=== PATIENT | female | born 1955 | race Caucasian/White ===

== ENCOUNTER 2020-03-22 14:45 | Outpatient (CLI) | payer BC, SELFPAY ==
--- NOTE | ~2020-03-22 | MM_ITS ---
EXAMINATION: MM screening mirela BI w kayden HISTORY: Screening mammogram TECHNIQUE: Craniocaudal and mediolateral oblique 3-D tomosynthesis images were obtained and synthetic 2-D images were generated. Bilateral rotated lateral cc views. CAD analysis was submitted and interp reted. COMPARISON: 11/03/2016, 10/14/2015 bilateral digital screening mammogram examinations BREAST PARENCHYMAL COMPOSITION: There are scattered areas of fibroglandular density. FINDINGS: There is no evidence of suspicious mass, calcification, or architectural distortion to sugg est malignancy in either breast. There has been no suspicious interval change. IMPRESSION: 1. No mammographic evidence of malignancy. 2. Recommend routine screening mammography in one year. BI-RADS Category 1: Negative Reviewed, dictated and finalized at location A.
--- NOTE | ~2020-03-22 | DEXA_ITS ---
Bone Density Report Name: Elyse Damon Age: 64 Sex: Female Ethnicity: Date of : 1955 Indication: postmenopausal; height loss; hysterectomy; Referring Provider: BELIA LEONG Study: Bone densitometry was performed. Exam Date: March 22, 2020 Accession number: [id number] Bone Density: Region BMD T-score Z-score Classification AP Spine (L1-L4) 0.970 -0.7 0.9 Normal Femoral Neck (Left) 0.714 -1.2 0.0 Osteopenia Total Hip (Left) 0.963 0.2 1.0 Normal Total Hip Bilateral Avg 0.933 -0.1 0.8 Normal Femoral Neck (Right) 0.647 -1.8 -0.6 Osteopenia Total Hip (Right) 0.902 -0.3 0.6 Normal World Health Organization criteria for BMD impression classify patients as: Normal (T-score at or above -1.0), Osteopenia (T-score between -1.0 and -2.5), or Osteoporosis (T-score at or below -2.5). 10-year Fracture Risk(1): Major Osteoporotic Fracture 8.2% Hip Fracture 0.9% Reported Risk Factors: [place] (), Neck BMD=0.647, BMI=44.5 (1) FRAX(R) Version 3.08. Fracture probability calculated for an untreated patient. Fracture probability may be lower if the patient has received treatment. Clinical Information Provided by Patient: Has the following medical conditions: Hysterectomy Patient maximum height was 65 Menopause Age: 54 No regular weight bearing exercise Drinks caffeinated beverages Onset of menses at age 13 Number of children 2 Impression: The patient has low bone mass, based on the Right Femoral Neck T-score. The patient has an estimated ten-year risk of hip fracture of 0.9% and an estimated ten-year risk of major fracture of 8.2%, based on the WHO FRAX algorithm. Discussion: BONE DENSITY IS LOW AT ONE OR MORE SKELETAL SITES. This patient's lowest T-score is low at one or more skeletal sites. It meets the World Health Organization's (WHO) criteria for ?low bone mass? (T-score between -1.0 and -2.5). The patient's 10-year risk of fracture as calculated by FRAX is less than the threshold where pharmacological therapy is recommended by the National Osteoporosis Foundation (NOF). However, all treatment decisions require clinical judgment and consideration of individual patient factors, including patient preferences, comorbidities, previous drug use, risk factors not captured in the FRAX model (e.g., frailty, falls, vitamin D deficiency, increased bone turnover, interval significant decline in bone density) and possible under or overestimation of fracture risk by FRAX. The patient should follow a healthful lifestyle (good nutrition with adequate calcium and vitamin D, and appropriate weight-bearing exercise). Follow-Up: Consider repeating this study in 2 to 3 years to reassess this patient's status, or sooner if there is some new clinical indication. Reported by: MANUEL on 03/22/2020 3:29:00 PM.
== END 2020-03-22 14:46 | disposition home or self-care (01) ==
LOC: ANHIMG 14:48
PROVIDERS: PCP Family Medicine; Visit Provider Family Medicine
DX: Z78.0 Asymptomatic menopausal state (principal); Z12.31 Encounter for screening mammogram for malignant neoplasm of breast; M85.852 Other specified disorders of bone density and structure, left thigh; M85.851 Other specified disorders of bone density and structure, right thigh
CPT/HCPCS: 77063; 77067; 77080

== ENCOUNTER → 2021-06-09 16:32 | Outpatient (CLI) | payer BC, SELFPAY ==
--- NOTE | ~2021-06-09 | MM_ITS ---
EXAMINATION: MM screening mirela BI w kayden HISTORY: Screening TECHNIQUE: Craniocaudal and mediolateral oblique 3-D tomosynthesis images were obtained and synthetic 2-D images were generated. CAD analysis was submitted and interpreted. COMPARISON: Comparison to multiple prior studies sequentially, with oldest reviewed study dated 10/05. BREAST PARENCHYMAL COMPOSITION: Breast composed of scattered areas of fibroglandular density FINDINGS: There is no evidence of suspicious mass, calcification, or architectural distortion to sugg est malignancy in either breast. There has been no suspicious interval change. IMPRESSION: 1. No mammographic evidence of malignancy. 2. Recommend routine screening mammography in one year. BI-RADS Category 1: Negative Reviewed, dictated and finalized at location A.
--- NOTE | ~2021-06-09 | XR_ITS ---
EXAMINATION: XR cervical spine min 6V DATE: 06/09/2021 17:01 INDICATION: Neck pain. TECHNIQUE: 8 views of cervical spine including flexion and extension views were obtained. COMPARISON: None. FINDINGS: There is 6 degrees levocurvature of cervicothoracic spine. The spine is hypomobile with fle xion and extension. Vertebral body heights are normal. There is mildly decreased disc height at C5 C4 -C5 and moderately decreased disc height at C5-C6 and C6-C7. There is multilevel facet joint osteoart hritis, severe on the right at C3-C4. There is multilevel uncovertebral joint osteoarthritis, moderat e to severe bilaterally from C3-C4 through C6-C7. On the right, there is mild neural foraminal stenos is at C3-C4 and moderate neural foraminal stenosis from C4-C5 through C6-C7. On the left, there is mi ld neural foraminal stenosis at C4-C5 and moderate neural foraminal stenosis at C5-C6 and C6-C7. Ther e is mild central canal stenosis at C4-C5, C5-C6, and C6-C7. No prevertebral soft tissue swelling. IMPRESSION: 1. Moderate cervical spondylosis. Reviewed, dictated and finalized at location A.
== END ==
PROVIDERS: PCP Family Medicine; Visit Provider Family Medicine
DX: Z12.31 Encounter for screening mammogram for malignant neoplasm of breast (principal); M47.812 Spondylosis without myelopathy or radiculopathy, cervical region; M48.02 Spinal stenosis, cervical region
CPT/HCPCS: 72052; 77063; 77067

== ENCOUNTER 2021-11-17 08:53 | Outpatient (CLI) | payer BC, SELFPAY ==
--- NOTE | ~2021-11-17 | US_ITS ---
EXAMINATION: US thyroid EXAM DATE: 11/17/2021 10:01 INDICATION: E04.1 - Nontoxic single thyroid nodule . TECHNIQUE: Multiple grayscale and Doppler images of the thyroid were obtained (by a technologist who performed the scan) and subsequently reviewed. Individual nodules and recommendations may be reporte d in accordance with TI-RADS system as designated by the 2017 ACR White Paper TI-RADS committee. Comp katya is made to prior examination from 03/21/2019. FINDINGS: The right thyroid lobe measures 4.5 x 1.2 x 1.6 cm, with several small thyroid nodules. The left thyr oid lobe measures 4.1 x 1.5 x 1.8 cm with the dominant thyroid nodule measuring 1.8 x 1.2 x 1.6 cm, s olid (2 points), hypoechoic (2 points), wider than tall, smooth well defined margin, without echogeni c foci, category TR4 for this nodule. On prior study dimensions provided at 1.8 x 1.2 x 1.7 cm, is u nchanged in size. IMPRESSION: Stable multinodular goiter. Return to clinical follow-up and if additional palpable abnor mality develops a repeat ultrasound. Reviewed, dictated and finalized at location A. 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 Return to clinical follow-up and if add itional palpable abnormality develops a repeat ultrasound.
== END 2021-11-17 08:54 | disposition home or self-care (01) ==
PROVIDERS: PCP Family Medicine; Visit Provider Internal Medicine Endocrinology, Diabetes & Metabolism
DX: E04.9 Nontoxic goiter, unspecified (principal)
CPT/HCPCS: 76536

== ENCOUNTER → 2022-07-21 11:30 | Outpatient (CLI) | payer BC, SELFPAY ==
--- NOTE | ~2022-07-21 | DEXA_ITS ---
Bone Density Report Name: BUTCH CLINE Age: 67 Sex: Female Ethnicity: Date of : 1955 Indication: postmenopausal; screening for osteoporosis; hysterectomy; Referring Provider: Kristie Zhou Study: Bone densitometry was performed. Exam Date: July 21, 2022 Accession number: [id number] Bone Density: Region BMD T-score Z-score Classification AP Spine (L1-L4) 0.946 -0.9 0.9 Normal Femoral Neck (Left) 0.674 -1.6 -0.3 Osteopenia Total Hip (Left) 0.855 -0.7 0.3 Normal Femoral Neck (Right) 0.601 -2.2 -0.9 Osteopenia Total Hip (Right) 0.812 -1.1 0.0 Osteopenia Total Hip Mean 0.834 -0.9 0.2 Normal World Health Organization criteria for BMD impression classify patients as: Normal (T-score at or above -1.0), Osteopenia (T-score between -1.0 and -2.5), or Osteoporosis (T-score at or below -2.5). Previous Exams: Region Exam Age BMD T-score BMD Change BMD Change Date g/cm2 vs Baseline vs Previous AP Spine(L1-L4) 07/21/2022 67 0.946 -0.9 -0.226 -0.119 10/25/2011 56 1.065 0.2 -0.106* -0.106* 05/10/2008 53 1.171 1.1 Total Hip(Left) 07/21/2022 67 0.855 -0.7 -0.206 -0.129 10/25/2011 56 0.984 0.3 -0.077* -0.077* 05/10/2008 53 1.061 1.0 Total Hip(Right) 07/21/2022 67 0.812 -1.1 -0.225 -0.199 10/25/2011 56 1.011 0.6 -0.026 -0.026 05/10/2008 53 1.038 0.8 *Denotes significance at 95% confidence level, LSC for AP Spine = 0.022 g/cm2, LSC for Total Hip = 0.027 g/cm2 Clinical Information Provided by Patient: Has used the following medications: Vitamin D, NEIL Has the following medical conditions: Hysterectomy Patient maximum height was 65.0 Menopause Age: 55 No regular weight bearing exercise Drinks caffeinated beverages Onset of menses at age 13 Number of children 2 Impression: The patient has low bone mass, based on the Right Femoral Neck T-score. No significant bone loss was observed. Discussion: BONE DENSITY IS LOW AT ONE OR MORE SKELETAL SITES. This patient's lowest T-score is low at one or more skeletal sites. It meets the World Health Organization's (WHO) criteria for ?low bone mass? (T-score between -1.0 and -2.5). The patient's 10-year risk of fracture as calculated by FRAX is less than the threshold where pharmacological therapy is recommended by the National Osteoporosis Foundation (NOF). However, all treatment decisions require clinical judgment and consideration of individual patient factors, including patient preferences, comor
== END ==
PROVIDERS: PCP Family Medicine; Visit Provider Internal Medicine Endocrinology, Diabetes & Metabolism
DX: M85.88 Other specified disorders of bone density and structure, other site (principal); M85.852 Other specified disorders of bone density and structure, left thigh; M85.851 Other specified disorders of bone density and structure, right thigh
CPT/HCPCS: 77080

== ENCOUNTER → 2022-08-11 10:40 | Outpatient (CLI) | payer BC, SELFPAY ==
--- NOTE | ~2022-08-11 | MM_ITS ---
EXAMINATION: MM screening mirela BI w kayden HISTORY: Screening TECHNIQUE: Craniocaudal and mediolateral oblique 3-D tomosynthesis images were obtained and synthetic 2-D images were generated. CAD analysis was submitted and interpreted. COMPARISON: Comparison to multiple prior studies sequentially, with oldest reviewed study dated 07/17. BREAST PARENCHYMAL COMPOSITION: There are scattered areas of fibroglandular density. FINDINGS: There is a new mass in the upper inner quadrant of the left breast posteriorly. The right b reast is stable without evidence for malignancy. IMPRESSION: 1. New left breast mass, upper inner quadrant. 2. Additional mammographic views and possible breast ultrasound are recommended. BI-RADS Category 0: Incomplete: Needs additional imaging evaluation. Reviewed, dictated and finalized at location A. IMPRESSION: 1. New left breast mass, upper inner quadrant. 2. Additional mammographic views and possible breast ultrasound are recommended . BI-RADS Category 0: Incomplete: Needs additional imaging evaluation.
== END ==
PROVIDERS: PCP Family Medicine; Visit Provider Family Medicine
DX: Z12.31 Encounter for screening mammogram for malignant neoplasm of breast (principal); R92.8 Other abnormal and inconclusive findings on diagnostic imaging of breast
CPT/HCPCS: 77063; 77067

== ENCOUNTER → 2022-08-17 09:20 | Outpatient (CLI) | payer BC, SELFPAY ==
--- NOTE | ~2022-08-17 | MMUS_ITS ---
EXAMINATION: MM diagnostic mirela LT w kayden, US breast LT limited HISTORY: Follow-up left breast mass TECHNIQUE: Additional 3-D tomosynthesis images of the left breast were performed and synthetic 2-D im ages were generated. CAD analysis was submitted and interpreted. High resolution Limited left breast ultrasound was performed. COMPARISON: Comparison to multiple prior studies sequentially, with oldest reviewed study dated 07/17. BREAST PARENCHYMAL COMPOSITION: Breast composed of scattered areas of fibroglandular density FINDINGS: MAMMOGRAPHIC FINDINGS: There are 2 small masses in the upper aspect of the left breast measuring 4 mm or less. The more post erior mass measures 4 mm and is located in the upper inner quadrant of the left breast. The anterior mass is not well visualized on CC view. ULTRASOUND: Limited left breast ultrasound: At 12:00, 2 cm from the nipple, there is a 3 mm cystic nodule with in ternal echogenic foci, possibly complicated cyst. No other discrete masses are identified. IMPRESSION: 1. Multiple benign findings of the left breast. 2. Recommend 6 month follow-up diagnostic left mammogram and ultrasound BI-RADS category 3, probably benign findings. Reviewed, dictated and finalized at location A. IMPRESSION: 1. Multiple benign findings of the left breast. 2. Recommend 6 month follow-up diagnostic left mammogram and ultrasound BI-RADS category 3, probably benign findings.
== END ==
PROVIDERS: PCP Family Medicine; Visit Provider Physician Assistant
DX: R92.8 Other abnormal and inconclusive findings on diagnostic imaging of breast (principal); N63.23 Unspecified lump in the left breast, lower outer quadrant; N63.22 Unspecified lump in the left breast, upper inner quadrant
CPT/HCPCS: 76642; 77061; 77065; G0279

== ENCOUNTER → 2023-03-08 08:08 | Outpatient (CLI) | payer BC, SELFPAY ==
--- NOTE | ~2023-03-08 | MMUS_ITS ---
EXAMINATION: MM diagnostic mirela LT w kayden, US breast LT limited HISTORY: Six-month follow-up for probably benign left breast masses TECHNIQUE: Craniocaudal, mediolateral, and mediolateral oblique 3-D tomosynthesis images of the left breast were performed and synthetic 2-D images were generated. CAD analysis was submitted and interpr eted. High resolution limited left breast ultrasound was performed. COMPARISON: 08/17/2022, 08/11/2022, 06/09/2021 BREAST PARENCHYMAL COMPOSITION: There are scattered areas of fibroglandular density. FINDINGS: MAMMOGRAPHIC FINDINGS: The previously described mammographic mass of the inner breast is no longer evident. No suspicious ma ss, calcification, or architectural distortion are identified. There has been no suspicious interval change. ULTRASOUND: There is a stable 2 mm round, circumscribed, hypoechoic mass at the 12:00 location 2 cm from the nipp le with no posterior features or internal vascularity. IMPRESSION: 1. Stable, probably benign sonographically detected left breast mass. 2. Recommend 6 month follow-up bilateral diagnostic mammogram and left breast ultrasound. BI-RADS category 3, probably benign findings. Reviewed, dictated and finalized at location A. IMPRESSION: 1. Stable, probably benign sonographically detected left breast mass. 2. Recommend 6 month follow-up bilateral diagnostic mammogram and left breast u ltrasound. BI-RADS category 3, probably benign findings.
== END ==
PROVIDERS: PCP Family Medicine; Visit Provider Physician Assistant
DX: R92.8 Other abnormal and inconclusive findings on diagnostic imaging of breast (principal)
CPT/HCPCS: 76642; 77061; 77065; G0279

== ENCOUNTER → 2023-10-11 07:44 | Outpatient (CLI) | payer BC, SELFPAY ==
--- NOTE | ~2023-10-11 | MMUS_ITS ---
EXAMINATION: MM diagnostic mirela BI w kayden, US breast LT limited HISTORY: Six-month follow-up for probably benign sonographically detected left breast mass TECHNIQUE: Craniocaudal, mediolateral, and mediolateral oblique 3-D tomosynthesis images of the paul ts were performed and synthetic 2-D images were generated. CAD analysis was submitted and interpreted . High resolution limited left breast ultrasound was performed. COMPARISON: 03/08/2023, 08/17/2022, 08/11/2022, 06/09/2021 BREAST PARENCHYMAL COMPOSITION: There are scattered areas of fibroglandular density. FINDINGS: MAMMOGRAPHIC FINDINGS: No suspicious mass, calcification, or architectural distortion are identified in either breast to sug gest malignancy. There has been no suspicious interval change. Scattered benign-appearing calcificati ons are present. ULTRASOUND: There is a stable 2 mm round, circumscribed, hypoechoic mass at the 12:00 location, 2 cm from the nip ple with no posterior features or internal vascularity. IMPRESSION: 1. Stable, probably benign sonographically detected left breast mass. 2. Given one year of interval stability, recommend 12 month followup bilateral diagnostic mammogram a nd left breast ultrasound. BI-RADS category 3, probably benign findings. Reviewed, dictated and finalized at location A. 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 Stable, probably benign sonographically detected left breast mass. 2. Given one year of interval stability, recommend 12 month followup bilateral diagnostic mammogram and left breast ultrasound. BI-RADS category 3, probably benign findings.
== END ==
PROVIDERS: PCP Family Medicine; Visit Provider Physician Assistant Medical
DX: R92.8 Other abnormal and inconclusive findings on diagnostic imaging of breast (principal)
CPT/HCPCS: 76642; 77062; 77066; G0279

== ENCOUNTER 2024-06-08 07:57 | Outpatient (CLI) | payer OTHER, SELFPAY ==
--- NOTE | ~2024-06-08 | US_ITS ---
COMPLETE ABDOMINAL ULTRASOUND Ordering provider: Justine Prescott MD History: . R74.8 - Abnormal levels of other serum enzymes . Comparison: None. FINDINGS: LIVER: Irregular outline with coarse echogenicity which is suggestive of cirrhosis. No focal hepatic lesions or perihepatic fluid collections are identified. GALLBLADDER: Surgically removed. BILIARY DUCTS: No evidence for intra or extrahepatic biliary dilation. Common bile duct measures 5 mm in diameter which is within normal limits. PANCREAS: Normal echotexture and size. KIDNEYS: Right measures 8.7 cm in length . There is no evidence for hydronephrosis, solid renal mass, renal calculi or perinephric fluid collections. No renal cysts. UPPER ABDOMINAL AORTA: Normal in caliber. IVC: Patent. FREE FLUID: None. IMPRESSION: Liver cirrhosis. Clinical correlation advised. Status post cholecystectomy. Otherwise, normal limite d ultrasound of the abdomen. Reviewed, dictated and finalized at location A. IMPRESSION: Liver cirrhosis. Clinical correlation advised. Status post cholecystectomy. Ot herwise, normal limited ultrasound of the abdomen.
== END 2024-06-08 07:58 ==
LOC: MICIMG 07:58
PROVIDERS: PCP Family Medicine; Visit Provider Family Medicine
DX: R74.8 Abnormal levels of other serum enzymes (principal); K74.60 Unspecified cirrhosis of liver; Z90.49 Acquired absence of other specified parts of digestive tract
CPT/HCPCS: 76705

== ENCOUNTER 2024-06-25 08:23 | Outpatient (CLI) | payer OTHER, SELFPAY ==
--- NOTE | ~2024-06-25 | CT_ITS ---
EXAMINATION: CT abdomen pelvis wo con DATE: 06/25/2024 08:39 INDICATION: Unspecified cirrhosis of liver. TECHNIQUE: Computed tomography (CT) of the abdomen and pelvis was performed without intravenous contr ast. Automated exposure control and iterative reconstruction technique were employed. The dose-length product was 912.75 mGy-cm. COMPARISON: CT abdomen and pelvis 09/06/2012 FINDINGS: The visualized portions of the lung bases demonstrate mild atelectasis. No pleural effusion . The heart size is normal. No pericardial effusion. There is a small sliding hiatal hernia. Paraesop hageal varices are noted. The liver demonstrates a nodular surface contour, consistent with cirrhosis . There are changes of cholecystectomy. There is moderate splenomegaly. The pancreas and adrenal glan ds are normal. There is an 8 mm cyst in right kidney. There are 2 mm and 3 mm stones in left kidney. There is diverticulosis of the colon without evidence of diverticulitis. The appendix is normal. Ther e is mild gastrohepatic and periportal lymphadenopathy, likely reactive. There is trace ascites. Ther e is severe lumbar spondylosis and moderate thoracic spondylosis. IMPRESSION: 1. Cirrhosis of the liver with portal venous hypertension. 2. Mild abdominal lymphadenopathy, likely reactive. 3. Small sliding hiatal hernia. Reviewed, dictated and finalized at location A.
== END 2024-06-25 08:24 ==
LOC: MICIMG 08:24
PROVIDERS: PCP Internal Medicine Gastroenterology; Visit Provider Family Medicine
DX: R74.8 Abnormal levels of other serum enzymes (principal); K74.60 Unspecified cirrhosis of liver; K76.6 Portal hypertension; R59.0 Localized enlarged lymph nodes; K44.9 Diaphragmatic hernia without obstruction or gangrene
CPT/HCPCS: 74176

== ENCOUNTER 2024-07-31 14:24 | Outpatient (CLI) | payer OTHER, SELFPAY ==
--- NOTE | ~2024-07-31 | MM_ITS ---
EXAMINATION: MM diagnostic mirela BI w kayden HISTORY: Follow-up left breast mass TECHNIQUE: Additional 3-D tomosynthesis images of the left breast were performed and synthetic 2-D im ages were generated. CAD analysis was submitted and interpreted. COMPARISON: Comparison to multiple prior studies sequentially, with oldest reviewed study dated 03/22. BREAST PARENCHYMAL COMPOSITION: Not dense: There are scattered areas of fibroglandular density. FINDINGS: The right breast is stable without evidence for malignancy. Stable subareolar asymmetries c ompared with prior examinations. No new masses, calcifications or architectural distortion. IMPRESSION: 1. Stable bilateral mammogram. Recommend follow-up correlation with targeted left breast ultrasound i s recommended on prior examination. 2. Limited left breast ultrasound recommended. BI-RADS Category 0: Incomplete: Needs additional imaging evaluation. Reviewed, dictated and finalized at location B. IMPRESSION: 1. Stable bilateral mammogram. Recommend follow-up correlation with targeted le ft breast ultrasound is recommended on prior examination. 2. Limited left breast ultrasound recommended. BI-RADS Category 0: Incomplete: Needs additional imaging evaluation.
== END 2024-07-31 14:25 | disposition home or self-care (01) ==
PROVIDERS: PCP Family Medicine; Visit Provider Internal Medicine Endocrinology, Diabetes & Metabolism
DX: Z12.31 Encounter for screening mammogram for malignant neoplasm of breast (principal); R92.8 Other abnormal and inconclusive findings on diagnostic imaging of breast
CPT/HCPCS: 77062; 77066; G0279

== ENCOUNTER 2024-08-07 10:17 | Outpatient (CLI) | payer OTHER, SELFPAY ==
--- NOTE | ~2024-08-07 | US_ITS ---
US breast LT limited 08/07/2024 10:28 Indication: Follow-up left breast mass Procedure: High-resolution Limited ultrasound of the left breast Comparison: Ultrasound dated 10/11/2023 and mammogram dated 07/31/2024 Findings: There is a small 3 mm anechoic mass with no significant posterior features or internal vasc ularity, unchanged, consistent with a cyst. No suspicious masses to suggest malignancy. Impression: 1: Benign 3 mm left breast cysts at 12:00, 2 cm from the nipple. No sonographic evidence for malignan cy. Routine yearly screening mammogram and regular clinical breast examination are recommended. BI-RADS CATEGORY 2 - BENIGN FINDINGS Reviewed, dictated and finalized at location B. Impression: 1: Benign 3 mm left breast cysts at 12:00, 2 cm from the nipple. No sonographic evidence for malignancy. Routine yearly screening mammogram and regular clinical breast examination are recommended. BI-RADS CATEGORY 2 - BENIGN FINDINGS
== END 2024-08-07 10:18 | disposition home or self-care (01) ==
LOC: MICIMG 10:17
PROVIDERS: PCP Family Medicine; Visit Provider Family Medicine
DX: N60.02 Solitary cyst of left breast (principal); R92.8 Other abnormal and inconclusive findings on diagnostic imaging of breast
CPT/HCPCS: 76642

== ENCOUNTER 2024-08-13 08:12 | Day surgery (SDC) | payer OTHER, SELFPAY ==
[2024-07-14 09:35] VITALS: BMI 36.8
[2024-07-29 13:26] VITALS: BMI 35.6
--- NOTE | 2024-08-13 07:05 | WPDANESEPPF ---
Anes - Initial Pre Proc Eval Procedure: Operation Date: 08/13/24 10:30 Proposed Procedures p Esophagogastroduodenoscopy - Alex Brown MD s Screening Colonoscopy - Alex Brown MD Date/Time: 08/13/24 07:05 Surgeon: Alex Brown MD Pre Op Diagnosis: cirrhosis, neoplasia screening Patient Data Age: 69 Gender: F Height: 1.59 m Weight: 90 kg Allergies Allergy/AdvReac Type Severity Reaction Status Date / Time No Known Allergies Allergy Verified 08/13/24 09:42 Home Medications Medication Instructions Recorded Confirmed Type multivitamin (Multiple Vitamins 1 tablet PO DAILY 10/06/19 08/13/24 History tablet) calcium carbonate (Calci-Mix) 500 mg PO DAILY 04/11/20 07/29/24 History cholecalciferol (vitamin D3) 25 1,000 unit PO DAILY 04/11/20 07/29/24 History mcg (1,000 unit) capsule albuterol sulfate 2.5 mg/3 mL 2.5 mg (3 mL) inhalation Q4-6H PRN 05/25/22 08/13/24 Rx (0.083 %) solution for nebulization shortness of breath or wheezing #180 mL albuterol sulfate 90 mcg/actuation 2 puff inhalation Q4H PRN 05/25/22 07/29/24 Rx aerosol inhaler (ProAir HFA) shortness of breath or wheezing #1 device montelukast 10 mg tablet 10 mg PO DAILY #90 tabs 01/29/24 08/13/24 Rx simvastatin 10 mg tablet See Rx Instructions .Route 01/29/24 08/13/24 Rx .COMPLEX #90 tabs semaglutide 2 mg/dose (8 mg/3 mL) 2 mg (0.75 mL) subcut WEEKLY 90 03/23/24 07/29/24 Rx subcutaneous pen injector days #9 mL lisinopril 5 mg tablet 5 mg PO DAILY #90 tabs 05/22/24 08/13/24 Rx citalopram 20 mg tablet See Rx Instructions .Route 07/22/24 08/13/24 Rx .COMPLEX #90 tabs meloxicam 15 mg tablet 15 mg PO DAILY #90 tabs 07/22/24 08/13/24 Rx pantoprazole 40 mg tablet,delayed See Rx Instructions .Route 07/22/24 08/13/24 Rx release .COMPLEX #90 tabs Patient hx anesthesia problems: none Family hx anesthesia problems: none Results Review: All pre-operative results and documents have been reviewed as part of the pre-operative evaluation. [facility] Past Medical History Medical History (Updated 08/13/24 @ 07:06 by Ramón Kearns DO) Abnormal CT scan Arthralgia BMI greater than 40 De Quervain's disease (radial styloid tenosynovitis) Encounter for screening colonoscopy Essential hypertension FH: cholecystectomy Hepatic cirrhosis Major depressive disorder, single episode, unspecified Metabolic syndrome Mixed hyperlipidemia Myalgia Nontoxic multinodular goiter Obstructive sleep apnea Onychomycosis Osteopenia Pure hypercholesterolemia, unspecified Rotator cuff tendonitis Seborrheic dermatitis of scalp Splenomegaly Tenosynovitis of thumb Thyroid nodule Transaminitis Type 2 diabetes mellitus without complications Vitamin D deficiency Surgical History Surgical History H/O: hysterectomy History of cholecystectomy Hx of bone graft Family History Family History Mother Family history of migraine headaches Family history of cataracts Hypertension Family history of Alzheimer's disease Family history of diabetes mellitus in first degree relative Family history of malignant neoplasm of breast in first degree relative Family history of hearing loss Father Family history of cataracts Hypertension Family history of arthritis Family history of diabetes mellitus in first degree relative Family history of primary malignant neoplasm of liver Sibling Family history of congestive heart failure Other Diabetes mellitus Family history of coronary artery disease Family history of tremor Social History Social History Smoking status: Never smoker Second hand tobacco smoke exposure: No Alcohol intake: never Alcohol use details: rare Substance use: never Substance use type: does not use Lack of Transportation: No Lack of Food: Never Tr
[2024-08-13 09:48] VITALS: BP 145/79; PULSE 70; RESP 18; TEMP 37.1; O2SAT 97; BMI 34.0
[2024-08-13] MEDS: LACTATED RINGERS 1,000 ML 150 ML IV CONT (09:52)
[2024-08-13 10:01] LABS: Glucose Point of Care 76 mg/dl (65-105)
--- NOTE | 2024-08-13 10:09 | PM.HPGS ---
History of Present Illness History of Present Illness Consent: Risks, benefits, and alternatives have been discussed and questions answered. Patient agrees to proceed with procedure. Chief complaint: cirrhosis, neoplasia screening Narrative: Elyse Damon is a 69 year old female presents for both colonoscopy and EGD. 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 There is concern that this may be related to fatty liver. Patient has no alcohol exposure. Weight appetite and bowel movements are normal. Patient referred for EGD to assess for possible varices and for screening colonoscopy. Family history is noncontributory. Review of Systems Review of Systems: All systems reviewed & are unremarkable except as noted in HPI and below PMFSH Past Medical History Medical History (Updated 08/13/24 @ 07:06 by Ramón Kearns, ) Abnormal CT scan Arthralgia BMI greater than 40 De Quervain's disease (radial styloid tenosynovitis) Encounter for screening colonoscopy Essential hypertension FH: cholecystectomy Hepatic cirrhosis Major depressive disorder, single episode, unspecified Metabolic syndrome Mixed hyperlipidemia Myalgia Nontoxic multinodular goiter Obstructive sleep apnea Onychomycosis Osteopenia Pure hypercholesterolemia, unspecified Rotator cuff tendonitis Seborrheic dermatitis of scalp Splenomegaly Tenosynovitis of thumb Thyroid nodule Transaminitis Type 2 diabetes mellitus without complications Vitamin D deficiency Surgical History Surgical History H/O: hysterectomy History of cholecystectomy Hx of bone graft Family History Family History Mother Family history of migraine headaches Family history of cataracts Hypertension Family history of Alzheimer's disease Family history of diabetes mellitus in first degree relative Family history of malignant neoplasm of breast in first degree relative Family history of hearing loss Father Family history of cataracts Hypertension Family history of arthritis Family history of diabetes mellitus in first degree relative Family history of primary malignant neoplasm of liver Sibling Family history of congestive heart failure Other Diabetes mellitus Family history of coronary artery disease Family history of tremor Social History Social History Smoking status: Never smoker Second hand tobacco smoke exposure: No Alcohol intake: never Alcohol use details: rare Substance use: never Substance use type: does not use Lack of Transportation: No Lack of Food: Never True Current Housing: I Have Housing Concerned About Future Housing: No Difficulty Paying Gas/Electric Bills: No Difficulty Paying for Meds: No Currently Unemployed: No Education: High School Diploma/GED Difficulty w/ Childcare or Family Care: No Living arrangements: alone Occupation/Education: occupation Gender identity (if verbalized by the patient): Female Sexual Orientation (if Verbalized by the Patient): Straight or Heterosexual Spiritual care concerns: No Agree to blood products: Yes Meds Home Medications and Allergies Home Medications Medication Instructions Recorded Confirmed Type multivitamin (Multiple Vitamins 1 tablet PO DAILY 10/06/19 08/13/24 History tablet) calcium carbonate (Calci-Mix) 500 mg PO DAILY 04/11/20 07/29/24 History cholecalciferol (vitamin D3) 25 1,000 unit PO DAILY 04/11/20 07/29/24 History mcg (1,000 unit) capsule albuterol sulfate 2.5 mg/3 mL 2.5 mg (3 mL) inhalation Q4-6H PRN 05/25/22 08/13/24 Rx (0.083 %) solution for nebulization shortness of breath or wheezing #180 mL albuterol sulfate 90 mcg/actuation 2 puff inhalation Q4H PRN 05/25/22 07/29/24 Rx aerosol inhaler (ProAir HFA) shortness of breath or wheezing #1 de
[2024-08-13 11:21] VITALS: BP 120/57; PULSE 77; RESP 16; O2SAT 97
[2024-08-13 11:31] VITALS: BP 128/79; PULSE 81; RESP 18; O2SAT 99
[2024-08-13 11:41] VITALS: BP 130/65; PULSE 74; RESP 20; O2SAT 98
--- NOTE | 2024-08-13 12:09 | WPDANESPN ---
Anes - Prog Note Post-Op Date/Time: 08/13/24 12:09 Cardiovascular status: normal Respiratory status: normal Airway patency: baseline Mental status: baseline Post-Op hydration status: normal Vital Signs: Last Vital Signs Temp 37.1 C 08/13/24 09:48 Pulse 74 08/13/24 11:41 Resp 20 08/13/24 11:41 BP 130/65 08/13/24 11:41 Pulse Ox 98 08/13/24 11:41 O2 Del Method Room Air 08/13/24 11:41 Pain Score (VAS): 0 I/O: Intake & Output 08/12/24 08/13/24 08/13/24 23:59 07:59 15:59 Intake Total 800 Balance 800 08/13/24 09:58 POC Capillary Glucose 76 Post-procedural complaints: none Patient Feedback: Patient satisfied with anesthetic care. Other Findings: Patient vital signs back to baseline. Patient denies nausea and vomiting. Patient's pain under control. Patient OK for discharge.
== END 2024-08-13 12:03 | disposition home or self-care (01) ==
PROVIDERS: PCP Family Medicine; Visit Provider Internal Medicine Gastroenterology
PROC: 0DJ08ZZ Inspection of Upper Intestinal Tract, Via Natural or Artificial Opening Endoscopic (ICD-10-PCS; CPT 43235; principal; 2024-08-13 10:30)
PROC: 0DJD8ZZ Inspection of Lower Intestinal Tract, Via Natural or Artificial Opening Endoscopic (ICD-10-PCS; CPT 45378; 2024-08-13 10:30)
DX: Z12.11 Encounter for screening for malignant neoplasm of colon (principal); K74.69 Other cirrhosis of liver; K57.30 Diverticulosis of large intestine without perforation or abscess without bleeding; K64.8 Other hemorrhoids; I85.00 Esophageal varices without bleeding
CPT/HCPCS: 45378; 43235

== ENCOUNTER 2024-08-17 00:44 | Day surgery (SDC) | payer OTHER, SELFPAY ==
[2024-08-14 12:31] VITALS: BMI 35.1
[2024-08-17 10:20] VITALS: BP 146/63; PULSE 76; RESP 18; TEMP 36.8; O2SAT 98
--- NOTE | 2024-08-17 10:31 | WPDANESEPPF ---
Anes - Initial Pre Proc Eval Procedure: Operation Date: 08/17/24 11:30 Proposed Procedures p Esophagogastroduodenoscopy - Felipe Levin MD Date/Time: 08/17/24 10:31 Surgeon: Felipe Levin MD Pre Op Diagnosis: Esophageal varices without bleeding Patient Data Age: 69 Gender: F Height: 1.59 m Weight: 88.3 kg Last Vital Signs Temp 36.8 C 08/17/24 10:20 Pulse 76 08/17/24 10:20 Resp 18 08/17/24 10:20 BP 146/63 H 08/17/24 10:20 Pulse Ox 98 08/17/24 10:20 O2 Del Method Room Air 08/17/24 10:20 Allergies Allergy/AdvReac Type Severity Reaction Status Date / Time No Known Allergies Allergy Verified 08/17/24 10:19 Home Medications Medication Instructions Recorded Confirmed Type multivitamin (Multiple Vitamins 1 tablet PO DAILY 10/06/19 08/14/24 History tablet) calcium carbonate (Calci-Mix) 500 mg PO DAILY 04/11/20 08/14/24 History cholecalciferol (vitamin D3) 25 1,000 unit PO DAILY 04/11/20 08/14/24 History mcg (1,000 unit) capsule albuterol sulfate 2.5 mg/3 mL 2.5 mg (3 mL) inhalation Q4-6H PRN 05/25/22 08/14/24 Rx (0.083 %) solution for nebulization shortness of breath or wheezing #180 mL albuterol sulfate 90 mcg/actuation 2 puff inhalation Q4H PRN 05/25/22 08/14/24 Rx aerosol inhaler (ProAir HFA) shortness of breath or wheezing #1 device montelukast 10 mg tablet 10 mg PO DAILY #90 tabs 01/29/24 08/14/24 Rx simvastatin 10 mg tablet See Rx Instructions .Route 01/29/24 08/14/24 Rx .COMPLEX #90 tabs semaglutide 2 mg/dose (8 mg/3 mL) 2 mg (0.75 mL) subcut WEEKLY 90 03/23/24 08/14/24 Rx subcutaneous pen injector days #9 mL lisinopril 5 mg tablet 5 mg PO DAILY #90 tabs 05/22/24 08/14/24 Rx citalopram 20 mg tablet See Rx Instructions .Route 07/22/24 08/14/24 Rx .COMPLEX #90 tabs meloxicam 15 mg tablet 15 mg PO DAILY #90 tabs 07/22/24 08/14/24 Rx pantoprazole 40 mg tablet,delayed See Rx Instructions .Route 08/13/24 08/14/24 Rx release .COMPLEX #90 tabs Patient hx anesthesia problems: none Family hx anesthesia problems: none Results Review: All pre-operative results and documents have been reviewed as part of the pre-operative evaluation. [facility] Past Medical History Medical History Abnormal CT scan Arthralgia BMI greater than 40 De Quervain's disease (radial styloid tenosynovitis) Encounter for screening colonoscopy Essential hypertension FH: cholecystectomy Hepatic cirrhosis Major depressive disorder, single episode, unspecified Metabolic syndrome Mixed hyperlipidemia Myalgia Nontoxic multinodular goiter Obstructive sleep apnea Onychomycosis Osteopenia Pure hypercholesterolemia, unspecified Rotator cuff tendonitis Seborrheic dermatitis of scalp Splenomegaly Tenosynovitis of thumb Thyroid nodule Transaminitis Type 2 diabetes mellitus without complications Vitamin D deficiency Surgical History Surgical History H/O: hysterectomy History of cholecystectomy Hx of bone graft Family History Family History Mother Family history of migraine headaches Family history of cataracts Hypertension Family history of Alzheimer's disease Family history of diabetes mellitus in first degree relative Family history of malignant neoplasm of breast in first degree relative Family history of hearing loss Father Family history of cataracts Hypertension Family history of arthritis Family history of diabetes mellitus in first degree relative Family history of primary malignant neoplasm of liver Sibling Family history of congestive heart failure Other Diabetes mellitus Family history of coronary artery disease Family history of tremor Social History Social History Smoking status: Never smoker Second hand tobacco smoke exposure: No Alcohol intake: never Alcohol use details: rare Substance use: never Substance use type: does not use Lack of Transportation: No Lack of Food: Never True Current Housing: I Have Housing Concerned About Future Housing: No Difficulty Paying Gas/Electric Bills: No Difficulty Paying for Meds: No Currently Unemployed: No Education: High School Diploma/GED Difficulty w/ Childcare or Family Care: No Living arrangements: alone Occupation/Education: occupation Gender identity (if verbalized by the patient): Female Sexual Orientation (if Verbalized by the Patient): Straight or Heterosexual Spiritual care concerns: No Agree to blood products: Yes Anes - Eval Final PreProcedure Day of Procedure 08/17/24 10:31 Patient weight: obese Heart: regular rate and rhythm Lungs: clear to auscultation Airway: Mallampati scale class II Neurological: alert and oriented Last oral intake: >/= 8 hours ASA classification: IV Emergent: no Anesthetic plan: proceed Anesthesia type and monitoring: general GIVS and standard monitoring Results Review: All pre-operative results and documents have been reviewed as part of the pre-operative evaluation. Informed Consent: The patient's anesthetic plan and its attendant risks and benefits were discussed with the patient/family/POA. Questions were solicited and answers provided to the satisfaction of the patient/family/POA.
[2024-08-17] MEDS: LACTATED RINGERS 1,000 ML 150 ML IV CONT (10:33)
[2024-08-17 10:35] LABS: Glucose Point of Care 77 mg/dl (65-105)
--- NOTE | 2024-08-17 11:11 | WPDHPUPDATE1 ---
History and Physical Update Update Date/Time: 08/17/24 11:11 History and Physical has been reviewed, including an updated exam of the patient. There are NO changes in the patient's condition. Risks, benefits, and alternatives have been discussed and questions answered. Patient agrees to proceed with procedure.
[2024-08-17 11:30] VITALS: BP 172/90; PULSE 94; RESP 21; O2SAT 100
[2024-08-17 11:40] VITALS: BP 183/99; PULSE 87; RESP 18; O2SAT 100
[2024-08-17 11:50] VITALS: BP 189/90; PULSE 80; RESP 13; O2SAT 100
== END 2024-08-17 11:58 | disposition home or self-care (01) ==
PROVIDERS: PCP Family Medicine; Referring Provider Internal Medicine Gastroenterology; Visit Provider Internal Medicine Gastroenterology
PROC: 0DJ08ZZ Inspection of Upper Intestinal Tract, Via Natural or Artificial Opening Endoscopic (ICD-10-PCS; CPT 43235; principal; 2024-08-17 11:30)
DX: I85.00 Esophageal varices without bleeding (principal); I86.4 Gastric varices; K29.50 Unspecified chronic gastritis without bleeding; R16.1 Splenomegaly, not elsewhere classified; I10 Essential (primary) hypertension; E78.2 Mixed hyperlipidemia; E11.9 Type 2 diabetes mellitus without complications; K21.9 Gastro-esophageal reflux disease without esophagitis; M65.4 Radial styloid tenosynovitis [de Quervain]; F32.A Depression, unspecified; G47.33 Obstructive sleep apnea (adult) (pediatric); E55.9 Vitamin D deficiency, unspecified; R25.1 Tremor, unspecified; E88.810 Metabolic syndrome; M85.88 Other specified disorders of bone density and structure, other site; E66.9 Obesity, unspecified; Z68.35 Body mass index [BMI] 35.0-35.9, adult; Z79.82 Long term (current) use of aspirin; Z79.51 Long term (current) use of inhaled steroids; Z79.85 Long-term (current) use of injectable non-insulin antidiabetic drugs; Z98.890 Other specified postprocedural states; Z90.49 Acquired absence of other specified parts of digestive tract; Z80.0 Family history of malignant neoplasm of digestive organs; Z80.3 Family history of malignant neoplasm of breast; Z82.49 Family history of ischemic heart disease and other diseases of the circulatory system
CPT/HCPCS: 43244; 82948; J2003; J2405; J2704; J7120

== ENCOUNTER 2024-10-09 01:53 | Day surgery (SDC) | payer OTHER, SELFPAY ==
[2024-09-23 09:08] VITALS: BMI 35.4
[2024-10-09 11:06] VITALS: BP 159/70; PULSE 77; RESP 18; TEMP 36.2; O2SAT 98
[2024-10-09 11:19] LABS: Glucose Point of Care 93 mg/dl (65-105)
[2024-10-09 11:21] VITALS: BP 112/60; PULSE 78; RESP 15; O2SAT 92
[2024-10-09 11:31] VITALS: BP 127/72; PULSE 78; RESP 14; O2SAT 93
[2024-10-09] MEDS: LACTATED RINGERS 1,000 ML 150 ML IV CONT (11:40)
[2024-10-09 11:41] VITALS: BP 137/73; PULSE 80; RESP 19; O2SAT 95
--- NOTE | 2024-10-09 12:03 | P.PNAN_ITS ---
Anes - Initial Pre Proc Eval Procedure: Operation Date: 10/09/24 15:00 Proposed Procedures p Esophagogastroduodenoscopy - Felipe Levin MD Date/Time: 10/09/24 12:03 Surgeon: Felipe Levin MD Pre Op Diagnosis: Esophageal varices w/o bleeding Patient Data Age: 69 Gender: F Height: 1.57 m Weight: 88.5 kg Last Vital Signs Temp 97.1 F L 10/09/24 11:06 Pulse 77 10/09/24 11:06 Resp 18 10/09/24 11:06 BP 159/70 H 10/09/24 11:06 Pulse Ox 98 10/09/24 11:06 O2 Del Method Room Air 10/09/24 11:06 Allergies Allergy/AdvReac Type Severity Reaction Status Date / Time No Known Allergies Allergy Verified 10/09/24 11:04 Home Medications Medication Instructions Recorded Confirmed Type multivitamin (Multiple Vitamins 1 tablet PO DAILY 10/06/19 10/09/24 History tablet) cholecalciferol (vitamin D3) 25 1,000 unit PO DAILY 04/11/20 10/09/24 History mcg (1,000 unit) capsule albuterol sulfate 2.5 mg/3 mL 2.5 mg (3 mL) inhalation Q4-6H PRN 05/25/22 10/09/24 Rx (0.083 %) solution for nebulization shortness of breath or wheezing #180 mL albuterol sulfate 90 mcg/actuation 2 puff inhalation Q4H PRN 05/25/22 10/09/24 Rx aerosol inhaler (ProAir HFA) shortness of breath or wheezing #1 device montelukast 10 mg tablet 10 mg PO DAILY #90 tabs 01/29/24 10/09/24 Rx semaglutide 2 mg/dose (8 mg/3 mL) 2 mg (0.75 mL) subcut WEEKLY 90 03/23/24 10/09/24 Rx subcutaneous pen injector days #9 mL lisinopril 5 mg tablet 5 mg PO DAILY #90 tabs 05/22/24 10/09/24 Rx meloxicam 15 mg tablet 15 mg PO DAILY #90 tabs 07/22/24 10/09/24 Rx citalopram 20 mg tablet 20 mg PO DAILY 09/23/24 10/09/24 History pantoprazole 40 mg tablet,delayed 40 mg PO DAILY 09/23/24 10/09/24 History release simvastatin 20 mg tablet 20 mg PO DAILY #90 tabs 09/24/24 10/09/24 Rx Laboratory Tests 10/09/24 11:11 POC Capillary Glucose 93 mg/dl (65-105) Patient hx anesthesia problems: none Family hx anesthesia problems: none Results Review: All pre-operative results and documents have been reviewed as part of the pre-operative evaluation. [facility] Past Medical History Medical History Abnormal CT scan Arthralgia BMI greater than 40 De Quervain's disease (radial styloid tenosynovitis) Encounter for screening colonoscopy Essential hypertension FH: cholecystectomy Hepatic cirrhosis Major depressive disorder, single episode, unspecified Metabolic syndrome Mixed hyperlipidemia Myalgia Nontoxic multinodular goiter Obstructive sleep apnea Onychomycosis Osteopenia Pure hypercholesterolemia, unspecified Rotator cuff tendonitis Seborrheic dermatitis of scalp Splenomegaly Tenosynovitis of thumb Thyroid nodule Transaminitis Type 2 diabetes mellitus without complications Vitamin D deficiency Surgical History Surgical History H/O: hysterectomy History of cholecystectomy Hx of bone graft Family History Family History Mother Family history of migraine headaches Family history of cataracts Hypertension Family history of Alzheimer's disease Family history of diabetes mellitus in first degree relative Family history of malignant neoplasm of breast in first degree relative Family history of hearing loss Father Family history of cataracts Hypertension Family history of arthritis Family history of diabetes mellitus in first degree relative Family history of primary malignant neoplasm of liver Sibling Family history of congestive heart failure Other Diabetes mellitus Family history of coronary artery disease Family history of tremor Social History Social History Smoking status: Former smoker Second hand tobacco smoke exposure: No Alcohol intake: never Alcohol use details: rare Substance use: never Substance use type: does not use Lack of Transportation: No Lack of Food: Never True Current Housing: I Have Housing Concerned About Future Housing: No Difficulty Paying Gas/Electric Bills: No Difficulty Paying for Meds: No Currently Unemployed: No Education: High School Diploma/GED Difficulty w/ Childcare or Family Care: No Living arrangements: alone Occupation/Education: occupation Gender identity (if verbalized by the patient): Female Sexual Orientation (if Verbalized by the Patient): Straight or Heterosexual Spiritual care concerns: No Agree to blood products: Yes Anes - Eval Final PreProcedure Day of Procedure 10/09/24 12:03 Patient weight: obese Heart: regular rate and rhythm Lungs: clear to auscultation Airway: Mallampati scale class II Neurological: alert and oriented Last oral intake: >/= 8 hours ASA classification: IV Emergent: no Anesthetic plan: proceed Anesthesia type and monitoring: general GIVS and standard monitoring Results Review: All pre-operative results and documents have been reviewed as part of the pre- operative evaluation. HTN, hyperlipidemia, ANTWON noncompliant, hx of cirrhosis, now for eval of prev bands. Informed Consent: The patient's anesthetic plan and its attendant risks and benefits were discussed with the patient/family/POA. Questions were solicited and answers provided to the satisfaction of the patient/family/POA.
--- NOTE | 2024-10-09 12:05 | PM.HPGS ---
History of Present Illness History of Present Illness Consent: Risks, benefits, and alternatives have been discussed and questions answered. Patient agrees to proceed with procedure. Chief complaint: Esophageal varices w/o bleeding Narrative: Elyse Damon is a 69 year old female with cirrhosis and previous EGD with EV that required banding used for eradication, she is doing ok, denies gib. Review of Systems Review of Systems: All systems reviewed & are unremarkable except as noted in HPI and below PMFSH Past Medical History Medical History (Updated 10/09/24 @ 12:08 by Felipe Levin MD) Abnormal CT scan Arthralgia BMI greater than 40 De Quervain's disease (radial styloid tenosynovitis) Encounter for screening colonoscopy Esophageal varices without bleeding Essential hypertension FH: cholecystectomy Hepatic cirrhosis Major depressive disorder, single episode, unspecified Metabolic syndrome Mixed hyperlipidemia Myalgia Nontoxic multinodular goiter Obstructive sleep apnea Onychomycosis Osteopenia Pure hypercholesterolemia, unspecified Rotator cuff tendonitis Seborrheic dermatitis of scalp Splenomegaly Tenosynovitis of thumb Thyroid nodule Transaminitis Type 2 diabetes mellitus without complications Vitamin D deficiency Surgical History Surgical History H/O: hysterectomy History of cholecystectomy Hx of bone graft Family History Family History Mother Family history of migraine headaches Family history of cataracts Hypertension Family history of Alzheimer's disease Family history of diabetes mellitus in first degree relative Family history of malignant neoplasm of breast in first degree relative Family history of hearing loss Father Family history of cataracts Hypertension Family history of arthritis Family history of diabetes mellitus in first degree relative Family history of primary malignant neoplasm of liver Sibling Family history of congestive heart failure Other Diabetes mellitus Family history of coronary artery disease Family history of tremor Social History Social History Smoking status: Former smoker Second hand tobacco smoke exposure: No Alcohol intake: never Alcohol use details: rare Substance use: never Substance use type: does not use Lack of Transportation: No Lack of Food: Never True Current Housing: I Have Housing Concerned About Future Housing: No Difficulty Paying Gas/Electric Bills: No Difficulty Paying for Meds: No Currently Unemployed: No Education: High School Diploma/GED Difficulty w/ Childcare or Family Care: No Living arrangements: alone Occupation/Education: occupation Gender identity (if verbalized by the patient): Female Sexual Orientation (if Verbalized by the Patient): Straight or Heterosexual Spiritual care concerns: No Agree to blood products: Yes Meds Home Medications and Allergies Home Medications Medication Instructions Recorded Confirmed Type multivitamin (Multiple Vitamins 1 tablet PO DAILY 10/06/19 10/09/24 History tablet) cholecalciferol (vitamin D3) 25 1,000 unit PO DAILY 04/11/20 10/09/24 History mcg (1,000 unit) capsule albuterol sulfate 2.5 mg/3 mL 2.5 mg (3 mL) inhalation Q4-6H PRN 05/25/22 10/09/24 Rx (0.083 %) solution for nebulization shortness of breath or wheezing #180 mL albuterol sulfate 90 mcg/actuation 2 puff inhalation Q4H PRN 05/25/22 10/09/24 Rx aerosol inhaler (ProAir HFA) shortness of breath or wheezing #1 device montelukast 10 mg tablet 10 mg PO DAILY #90 tabs 01/29/24 10/09/24 Rx semaglutide 2 mg/dose (8 mg/3 mL) 2 mg (0.75 mL) subcut WEEKLY 90 03/23/24 10/09/24 Rx subcutaneous pen injector days #9 mL lisinopril 5 mg tablet 5 mg PO DAILY #90 tabs 05/22/24 10/09/24 Rx meloxicam 15 mg tablet 15 mg PO DAILY #90 tabs 07/22/24 10/09/24 Rx citalopram 20 mg tablet 20 mg PO DAILY 09/23/24 10/09/24 History pantoprazole 40 mg tablet,delayed 40 mg PO DAILY 09/23/24 10/09/24 History release simvastatin 20 mg tablet 20 mg PO DAILY #90 tabs 09/24/24 10/09/24 Rx Allergies Allergy/AdvReac Type Severity Reaction Status Date / Time No Known Allergies Allergy Verified 10/09/24 11:04 Vital Signs Vital Signs - 24 hr 10/09/24 11:06 Temperature 97.1 F L Pulse Rate 77 Respiratory Rate 18 Blood Pressure 159/70 H Pulse Oximetry 98 Oxygen Delivery Room Air Exam Const: General: comfortable and no acute distress HENMT: Face/Nose/Sinus: Normal nares present Eyes: General: appearance normal, both eyes and all related structures Neck: Neck: no JVD Resp: Auscultation: clear to auscultation bilaterally Cardio: Rate: regular rate Rhythm: regular rhythm GI: Inspection: non-distended GI Palp: Yes Soft to palpation Skin: General skin exam: normal color Neuro: General: gait normal Speech: normal speech Extrem: General: normal to inspection Psych: Mental Status: mental status grossly normal Assessment and Plan Assessment and plan (1) Hepatic cirrhosis: Code(s): K74.60 - Unspecified cirrhosis of liver Status: Acute (2) Esophageal varices without bleeding: Code(s): I85.00 - Esophageal varices without bleeding Status: Acute Assessment and Plan: here for another egd s/p EBL as prophylaxis, check again if needs more intervention
== END 2024-10-09 13:02 | disposition home or self-care (01) ==
PROVIDERS: PCP Family Medicine; Visit Provider Internal Medicine Gastroenterology
PROC: 0DJ08ZZ Inspection of Upper Intestinal Tract, Via Natural or Artificial Opening Endoscopic (ICD-10-PCS; CPT 43235; principal; 2024-10-09 15:00)
DX: I85.00 Esophageal varices without bleeding (principal); K29.70 Gastritis, unspecified, without bleeding; K74.60 Unspecified cirrhosis of liver; I10 Essential (primary) hypertension; E78.2 Mixed hyperlipidemia; E11.9 Type 2 diabetes mellitus without complications; E55.9 Vitamin D deficiency, unspecified; M65.4 Radial styloid tenosynovitis [de Quervain]; F32.9 Major depressive disorder, single episode, unspecified; E88.810 Metabolic syndrome; G47.33 Obstructive sleep apnea (adult) (pediatric); M85.88 Other specified disorders of bone density and structure, other site; E66.9 Obesity, unspecified; Z68.35 Body mass index [BMI] 35.0-35.9, adult; Z79.51 Long term (current) use of inhaled steroids; Z79.85 Long-term (current) use of injectable non-insulin antidiabetic drugs; Z98.890 Other specified postprocedural states; Z90.49 Acquired absence of other specified parts of digestive tract; Z87.891 Personal history of nicotine dependence; Z80.3 Family history of malignant neoplasm of breast; Z80.0 Family history of malignant neoplasm of digestive organs; Z82.49 Family history of ischemic heart disease and other diseases of the circulatory system
CPT/HCPCS: 43235; 82948; J2003; J2704; J7120

== ENCOUNTER 2024-12-11 13:57 | Outpatient (CLI) | payer OTHER, SELFPAY ==
--- OUTSIDE RECORDS SUMMARY | 2024-12-11 14:00 | XMS_ITS | Clinical Summary ---
Author Organization Formerly [facility], [facility] Address [address] [place] [id number] Care Team Providers Care Automatic Nailing Machine Feeder Name Role Phone Justine Prescott MD Primary Care Provider [phone] Medications No known medications Active Problems No known active problems Social History Tobacco Use Types Packs/Day Years Used Date Smoking Tobacco: Never Smokeless Tobacco: Never Comments Unknown Sex and Gender Information Value Date Recorded Sex Assigned at Not on file Legal Sex Female 9:48 AM PRODUCTION TRAINER Gender Identity Not on file Sexual Orientation Not on file Last Filed Vital Signs Vital Sign Reading Time Taken Comments Blood Pressure 139/82 11/01/2020 10:22 AM PRODUCTION TRAINER Pulse 82 11/01/2020 10:22 AM PRODUCTION TRAINER Temperature 37.5 C (99.5 F) 11/01/2020 10:22 AM PRODUCTION TRAINER Respiratory Rate 20 11/01/2020 10:22 AM PRODUCTION TRAINER Oxygen Saturation 98% 11/01/2020 10:22 AM PRODUCTION TRAINER Inhaled Oxygen Concentration - - Weight - - Height - - Body Mass Index - - Plan of Treatment Health Maintenance Due Date Last Done Comments DTAP/TDAP/TD VACCINES (1 - Tdap) 1976 BREAST CANCER SCREENING 1997 COLORECTAL SCREENING 2002 Colorectal Cancer Screening 2002 FIT-DNA Q 3 years 2002 FIT/FOBT Q 1 year 2002 Flex Sig/CT Colonography Q 5 years 2002 PNEUMOCOCCAL VACCINE 65+ YEARS (1 of 1 - PCV) 04/21/20 07 ZOSTER VACCINE (1 of 2) 2007 OSTEOPOROSIS SCREENING 2022 INFLUENZA VACCINE (#1) 2024 RSV VACCINE (60+ or ) (1 - 1-dose 75+ series) 2032 Insurance BLUE ACCESS CHOICE Member Subscriber Plan / Payer (Ef fective 2011-Present) Name:Elyse Damon Relation to Subscriber:Self Name:Elyse Damon Payer ID:[id number] (NAIC) Type:[employer] Address: [id number] [place] [address] Care Teams Automatic Nailing Machine Feeder Relationship Specialty Start Date End Date Justine Prescott MD [address] [place] [address] PCP - General 11/01/20
[2024-12-11 14:50] LABS: Influenza A QL RT-PCR Positive (Negative); Influenza B QL RT-PCR Negative (Negative); RSV RNA, RT-PCR Negative (Negative); SARS-CoV-2 RNA PCR Negative (Negative)
== END 2024-12-11 13:58 | disposition home or self-care (01) ==
LOC: ANHLAB 13:58
PROVIDERS: PCP Family Medicine; Visit Provider Family Medicine
DX: J06.9 Acute upper respiratory infection, unspecified (principal)
CPT/HCPCS: 87637

== ENCOUNTER 2025-02-09 07:46 | Outpatient (CLI) | payer OTHER, SELFPAY ==
--- NOTE | ~2025-02-09 | US_ITS ---
US right upper quadrant INDICATION: Cirrhosis of the liver PROCEDURE: Realtime right upper abdominal ultrasound. COMPARISON: CT dated 06/25/2024 FINDINGS: The pancreas is normal without focal mass or pancreatic ductal dilation. Liver surface is nodular with heterogeneous internal echotexture, consistent with cirrhosis. No discrete hepatic mass identified. There is normal directional flow in the portal vein. Gallbladder is surgically absent. Common bile duct measures 5 mm. No sonographic Willis's sign. IMPRESSION: 1: Cirrhosis of the liver. Reviewed, dictated and finalized at location A. IMPRESSION: 1: Cirrhosis of the liver.
--- OUTSIDE RECORDS SUMMARY | 2025-02-09 07:49 | XMS_ITS | Clinical Summary ---
Author Organization Count includes the [facility] Address [address] [place] [id number] Care Team Providers Care Poured Concrete Wall Technician Name Role Phone Justine Prescott MD Primary Care Provider [phone] Medications No known medications Active Problems No known active problems Social History Tobacco Use Types Packs/Day Years Used Date Smoking Tobacco: Never Smokeless Tobacco: Never Comments Unknown Sex and Gender Information Value Date Recorded Sex Assigned at Not on file Legal Sex Female 9:48 AM SHIP CAPTAIN Gender Identity Not on file Sexual Orientation Not on file Last Filed Vital Signs Vital Sign Reading Time Taken Comments Blood Pressure 139/82 11/01/2020 10:22 AM SHIP CAPTAIN Pulse 82 11/01/2020 10:22 AM SHIP CAPTAIN Temperature 37.5 C (99.5 F) 11/01/2020 10:22 AM SHIP CAPTAIN Respiratory Rate 20 11/01/2020 10:22 AM SHIP CAPTAIN Oxygen Saturation 98% 11/01/2020 10:22 AM SHIP CAPTAIN Inhaled Oxygen Concentration - - Weight - - Height - - Body Mass Index - - Plan of Treatment Health Maintenance Due Date Last Done Comments DTAP/TDAP/TD VACCINES (1 - Tdap) 1976 BREAST CANCER SCREENING 1997 COLORECTAL SCREENING 2002 Colorectal Cancer Screening 2002 FIT-DNA Q 3 years 2002 FIT/FOBT Q 1 year 2002 Flex Sig/CT Colonography Q 5 years 2002 PNEUMOCOCCAL VACCINE 50+ YEARS (1 of 1 - PCV) 04/21/20 07 ZOSTER VACCINE (1 of 2) 2007 OSTEOPOROSIS SCREENING 2022 INFLUENZA VACCINE (#1) 2024 RSV VACCINE (60+ or ) (1 - 1-dose 75+ series) 2032 Insurance BLUE ACCESS CHOICE Care Teams Poured Concrete Wall Technician Relationship Specialty Start Date End Date Justine Prescott MD [address] [place] [address] PCP - General 11/01/20
== END 2025-02-09 07:47 | disposition home or self-care (01) ==
PROVIDERS: Visit Provider Nurse Practitioner Family
DX: K74.60 Unspecified cirrhosis of liver (principal)
CPT/HCPCS: 76705

== ENCOUNTER 2025-03-12 07:23 | Outpatient (CLI) | payer OTHER, SELFPAY ==
--- NOTE | ~2025-03-12 | DEXA_ITS ---
Bone Density Report Name: BUTCH CLINE Age: 69 Sex: Female Ethnicity: Date of : 1955 Indication: postmenopausal; screening for osteoporosis; height loss; hysterectomy; Referring Provider: SHYANNE JI Study: Bone densitometry was performed. Exam Date: March 12, 2025 Accession number: [id number] Bone Density: Region BMD T-score Z-score Classification AP Spine(L1-L4) 0.878 -1.5 0.4 Osteopenia Femoral Neck (Left) 0.653 -1.8 -0.3 Osteopenia Total Hip (Left) 0.872 -0.6 0.6 Normal Femoral Neck (Right) 0.534 -2.8 -1.3 Osteoporosis Total Hip (Right) 0.735 -1.7 -0.4 Osteopenia Total Hip Mean 0.804 -1.2 0.1 Osteopenia World Health Organization criteria for BMD impression classify patients as: Normal (T-score at or above -1.0), Osteopenia (T-score between -1.0 and -2.5), or Osteoporosis (T-score at or below -2.5). 10-year Fracture Risk: FRAX not reported because: Some T-score for Spine Total or Hip Total or Femoral Neck at or below -2.5 Previous Exams: Region Exam Age BMD T-score BMD Change BMD Change Date g/cm2 vs Baseline vs Previous AP Spine (L1-L4) 03/12/2025 69 0.878 -1.5 -0.092 (-9.5%) -0.092 (-9.5%) 03/22/2020 64 0.970 -0.7 Total Hip(Left) 03/12/2025 69 0.872 -0.6 -0.091 (-9.4%) -0.091 (-9.4%) 03/22/2020 64 0.963 0.2 Total Hip(Right) 03/12/2025 69 0.735 -1.7 -0.167 (-18.5% -0.167 (-18.5% 03/22/2020 64 0.902 -0.3 *Denotes significance at 95% confidence level, LSC for AP Spine = 0.022 g/cm2, LSC for Total Hip = 0.027 g/cm2 Clinical Information Provided by Patient: Has used the following medications: Vitamin D, Calcium Has the following medical conditions: Hysterectomy Patient maximum height was 65 Menopause Age: 54 No regular weight bearing exercise Drinks caffeinated beverages Onset of menses at age 12 Number of children 2 Impression: The patient has osteoporosis, based on the Right Femoral Neck T-score. The BMD for the AP Spine (L1-L4) decreased, changing by -9.5% since the last DXA exam. The BMD for the Total Hip(Left) decreased, changing by -9.4% since the last DXA exam. The BMD for the Total Hip(Right) decreased, changing by -18.5% since the last DXA exam. Discussion: INCREASED RISK OF FRACTURE. BONE DENSITY IS UNDESIRABLY LOW AT ONE OR MORE SKELETAL SITES, CONSISTENT WITH POSTMENOPAUSAL OSTEOPOROSIS. This patient's lowest T-score meets the World Health Organization's (WHO) criteria for osteoporosis at one or more sites (T-score -2.5 or below). In untreated patients, the risk of osteoporotic fracture increases approximately two-fold for each 1.0 SD decrease in T-score. Low bone density is not the only risk factor for fracture; also consider factors such as patient's age, frailty or poor health, risk of falling, risk of injury, previous osteoporotic fracture, family history of osteoporosis, cigarette smoking, low body weight, etc. Not everyone with low bone mineral density has osteoporosis; osteomalacia and other metabolic bone disorders should also be considered. Patients who have osteoporosis should be evaluated for specific diseases and conditions (secondary causes) that may cause or contribute to bone loss. The [place] Association of Clinical Endocrinologists (AACE) and National Osteoporosis Foundation (NOF) recommend pharmacologic intervention for all postmenopausal women whose T-score is in this range. The patient should follow a healthful lifestyle (good nutrition with adequate calcium and vitamin D, and appropriate weight-bearing exercise). Follow-Up: Consider a repeat BMD and Vertebral Fracture Assessment (VFA) exam in 2 years or sooner if medically necessary, to reassess this patient's status. Reported by: LEONARDO on 03/12/2025 7:57:00 AM. Reviewed, dictated and finalized at location A. [facility]
--- OUTSIDE RECORDS SUMMARY | 2025-03-12 07:28 | XMS_ITS | Clinical Summary ---
Author Organization [facility] Health Address [address] [facility] [place] [address] Care Team Providers Care Account Manager Sales Representative Name Role Phone Unavailable Primary Care Provider Unavailabl e Source Comments [facility],non-owned Affiliates and Associated Physician Practices is amultiple site organization consisting of ambulatory clinics and hospital sitesin [place], [place], [place] and [place]. This disclosure is being madepursuant to the Care Everywhere program and may not contain all information available regarding this patient. Last updated 18.[facility] Health Encounters Date Type Department Care Team Description 02/26/2025 Travel from Last 3 Months Social History Tobacco Use Types Packs/Day Years Used Date Smoking Tobacco: Never Assessed Comments Unknown Sex and Gender Information Value Date Recorded Sex Assigned at Not on file Legal Sex Female 10:52 AM CDT Gender Identity Not on file Sexual Orientation Not on file Plan of Treatment Upcoming Encounters Date Type Department Care Team (Late st Contact Info) Description 04/07/2025 8:00 AM CDT Office Visit [facility] - [facility] [address] [place] [id number] Health Maintenance Due Date Last Done Comments BONE DENSITY TESTING 1955 COLOGUARD (AGES 45-75) - COL ON CA SCREENING 1955 COLON MONITORING 1957 COLONOSCOPY - COLON CA SCREENING 1957 CT COLONOGRAPHY - COLON CA SCREENING 1955 Colorectal Cancer Screening 1955 FIT - COLON CA SCREENING 1957 FLEX SIG - COLON CA SCREENING 1957 LIPID TESTING 1955 MAMMOGRAM 1955 HEPATITIS C SCREENING 04/17/1975 DTAP/TDAP/TD VACCINES (1 - Tdap) 1976 PNEUMOCOCCAL VACCINE 50+ (1 of 1 - PCV) 2007 ZOSTER VACCINE (1 of 2) 2007 COVID-19 VACCINE (1 - 2023-2 5 season) 2024 DEPRESSION SCREENING 11/04/2024 INFLUENZA VACCINE (Season Ended) 2025 Respiratory Syncytial Virus (RSV) Vaccine Pt: or over 60 yrs (1 - 1-dose 75+ series) 2032 HEPATITIS B VACCINE Aged Out No longe r eligible based on patient's age to complete this topic HIB VACCINE Aged Out No longer eligi ble based on patient's age to complete this topic HPV VACCINE Aged Out No longer eligi ble based on patient's age to complete this topic MENINGOCOCCAL (Group B) VACC INE SHARED DECISION-MAKING Aged Out No longer eligibl e based on patient's age to complete this topic MENINGOCOCCAL GROUPS A/C/Y/W VACCINE Aged Out No longer eligible b ased on patient's age to complete this topic [place] [address] [place] [address]
--- OUTSIDE RECORDS SUMMARY | 2025-03-12 07:28 | XMS_ITS | Clinical Summary ---
Author Organization [facility] Address [address] [place] [address] Care Team Providers Care Trimmer Machine Operator Name Role Phone Justine Prescott MD Primary Care Provider [phone] Medications No known medications Active Problems No known active problems Social History Tobacco Use Types Packs/Day Years Used Date Smoking Tobacco: Never Smokeless Tobacco: Never Comments Unknown Sex and Gender Information Value Date Recorded Sex Assigned at Not on file Legal Sex Female 9:48 AM EMBEDDED NURSE Gender Identity Not on file Sexual Orientation Not on file Last Filed Vital Signs Vital Sign Reading Time Taken Comments Blood Pressure 139/82 11/01/2020 10:22 AM EMBEDDED NURSE Pulse 82 11/01/2020 10:22 AM EMBEDDED NURSE Temperature 37.5 C (99.5 F) 11/01/2020 10:22 AM EMBEDDED NURSE Respiratory Rate 20 11/01/2020 10:22 AM EMBEDDED NURSE Oxygen Saturation 98% 11/01/2020 10:22 AM EMBEDDED NURSE Inhaled Oxygen Concentration - - Weight - [...] 2032 Insurance BLUE [employer]ESS CHOICE Care Teams Trimmer Machine Operator Relationship Specialty Start Date End Date Justine Prescott MD [address] [place] [address] PCP - General 11/01/20
== END 2025-03-12 07:24 | disposition home or self-care (01) ==
LOC: ANHIMG 07:24
PROVIDERS: PCP Internal Medicine Endocrinology, Diabetes & Metabolism; Visit Provider Internal Medicine Endocrinology, Diabetes & Metabolism
DX: M81.0 Age-related osteoporosis without current pathological fracture (principal); M85.80 Other specified disorders of bone density and structure, unspecified site
CPT/HCPCS: 77080

== ENCOUNTER 2025-04-22 10:00 | Outpatient (CLI) | payer OTHER, SELFPAY ==
--- NOTE | ~2025-04-22 | US_ITS ---
EXAMINATION: US thyroid DATE: 04/22/2025 10:20 INDICATION: Nontoxic single thyroid nodule TECHNIQUE: Multiple ultrasound images of the thyroid were obtained. COMPARISON: 11/17/2021 FINDINGS: The right thyroid lobe measures 4.2 x 1.4 x 1.2 cm. Within the mid pole of the right lobe of the thyroid gland is a 6.2 x 3.5 x 6.6 mm nodule: Composition - spongiform Echogenicity -hyperechoic and isoechoic (1) Shape - wider than tall Margin - smooth Echogenic foci -punctate echogenic foci (3) = TR 4, moderately suspicious Greater than or equal to 1 cm, follow-up. Greater than or equal to 1.5 cm, FNA. Within the mid pole of the right lobe of the thyroid gland is a 5.8 x 2.8 x 7 mm nodule: Composition - spongiform Echogenicity -hyperechoic and isoechoic (1) Shape - wider than tall Margin - smooth Echogenic foci -none = TR 1, benign. Within the lower pole of the right lobe of the thyroid gland is a 7.7 x 4.9 x 6.4 mm nodule: Composition - spongiform Echogenicity -hyperechoic and isoechoic (1) Shape - wider than tall Margin - smooth Echogenic foci -punctate echogenic foci (3) = TR 4, moderately suspicious Greater than or equal to 1 cm, follow-up. Greater than or equal to 1.5 cm, FNA. The left thyroid lobe measures 4.8 x 1.5 x 2.0 cm. Within the upper pole of the left lobe of the thyroid gland is a 13.8 x 13.6 x 13.5 mm nodule: Composition - spongiform Echogenicity -hyperechoic and isoechoic (1) Shape - wider than tall Margin -indistinct Echogenic foci - none. = TR 1, benign. Within the mid pole of the left lobe of the thyroid gland is a 18.9 x 14.8 x 17.3 mm nodule: Composition - spongiform Echogenicity -hyperechoic and isoechoic (1) Shape - wider than tall Margin -indistinct Echogenic foci - none. = TR 1, benign. The isthmus measures 0.4cm in anterior to posterior dimension. There is otherwise normal echotexture and echogenicity throughout the remainder of thyroid gland. No additional discrete nodules identified. Normal vascular flow is present. IMPRESSION: Two TR 4 nodules within the right lobe of the thyroid gland, which do not meet size criteria for foll ow-up or FNA. The remainder of the thyroid gland demonstrates TR 1 nodules (benign). While follow-up is not recommended (as per TI-RADS criteria), it may be performed at the discretion o f the referring clinician. Reviewed, dictated and finalized at location A. IMPRESSION: Two TR 4 nodules within the right lobe of the thyroid gland, which do not meet size criteria for follow-up or FNA. The remainder of the thyroid gland demonstrates TR 1 nodules (benign). While follow-up is not recommended (as per TI-RADS criteria), it may be perform ed at the discretion of the referring clinician.
== END 2025-04-22 10:01 | disposition home or self-care (01) ==
LOC: MICIMG 10:01
PROVIDERS: PCP Family Medicine; Visit Provider Internal Medicine Endocrinology, Diabetes & Metabolism
DX: E04.1 Nontoxic single thyroid nodule (principal); E55.9 Vitamin D deficiency, unspecified; M81.0 Age-related osteoporosis without current pathological fracture
CPT/HCPCS: 76536

== ENCOUNTER 2025-07-02 08:42 | Outpatient (CLI) | payer OTHER, SELFPAY ==
--- NOTE | ~2025-07-02 | US_ITS ---
US right upper quadrant INDICATION: Cirrhosis PROCEDURE: Realtime right upper abdominal ultrasound. COMPARISON: No prior studies for comparison. FINDINGS: The pancreas is normal without focal mass or pancreatic ductal dilation. Liver echotexture is increased. Nodular liver surface, compatible cirrhosis. No discrete hepatic mass. There is normal directional flow in the portal vein. Gallbladder not identified, likely surgically absent. Common bile duct measures 6.6 mm. No sonographic Willis's sign. IMPRESSION: 1: Cirrhosis of the liver. Reviewed, dictated and finalized at location O. IMPRESSION: 1: Cirrhosis of the liver.
--- OUTSIDE RECORDS SUMMARY | 2025-07-02 08:49 | XMS_ITS | Clinical Summary ---
Author Organization [facility] Address [address] [place] [address] Care Team Providers Care Pourer Off Name Role Phone Provider, No Pcp Primary Care Provider Unavailab le Source Comments [facility],non-owned Affiliates and Associated Physician Practices is amultiple site organization consisting of ambulatory clinics and hospital sitesin [place] and [place]. This disclosure is being madepursuant to the Care Everywhere program and may not contain all information available regarding this patient. Last updated 18.[facility] Medications * Be aware that medications may not be up to date on this document. Alwaysverify current medications with the patient. albuterol HFA (Proventil; Ventolin; Proair) 108 (90 Base) MCG/ACT inhaler INHALE 2 PUFFS EVERY 4 HOURS NEEDED FOR WHEEZE OR FOR SHORTNESS OF BREATH 5 Active albuterol (Proventil;Renato tolin) (2.5 MG/3ML) 0.083% nebulizer solution Inhale by mouth 4 times daily as needed for Shortness of Breath or Wheezing Active vitamin D3 (Cholecalcifer ol) 25 MCG (1000 UNITS) tablet Take 1 (one) tablet by mouth once daily Active citalopram (CeleXA) 20 MG tablet Take 1 (one) tablet by mouth once daily 5 Active lisinopril (Prinivil; Zestril) 5 MG tablet Take 1 (one) tablet by mouth once daily 5 Active montelukast (Singulair) 10 MG tablet Take by mouth once daily 5 Active multivitamin daily tablet Take 1 (one) tablet by mouth daily with food Active pantoprazole EC (Protonix) 40 MG tablet Take 1 (one) tablet by mouth every morning 5 Active propranolol (Inderal) 10 MG tablet Take 1 (one) tablet by mouth 2 times daily 5 Active Ozempic, 2 MG/DOSE, 8 MG/3ML pen Inject 2 (two) mg subcutaneously every 7 days (once a week) 5 Active simvastatin (Zocor) 20 MG tablet Take 1 (one) tablet by mouth once daily 5 Active Encounters Date Type Department Care Team Description 04/29/2025 Results Follow-Up [facility] - [address] [phone] Lyle Ambrosio MD 04/07/2025 8:00 AM CDT Office Visit [facility] - [address] [address] Lyle Ambrosio MD Compensated liver disease (HCC) (Primary Dx) 04/07/2025 Travel from Last 3 Months Social History Tobacco Use Types Packs/Day Years Used Date Smoking Tobacco: Never Assessed Comments Unknown Sex and Gender Information Value Date Recorded Sex Assigned at Not on file Legal Sex Female 10:52 AM CDT Gender Identity Female 04/06/2025 4:30 PM CDT Sexual Orientation Not on file Last Filed Vital Signs Vital Sign Reading Time Taken Comments Blood Pressure 120/59 04/07/2025 8:17 AM CDT Pulse 73 04/07/2025 8:17 AM CDT Temperature - - Respiratory Rate - - Oxygen Saturation 96% 04/07/2025 8:17 AM CDT Inhaled Oxygen Concentration - - Weight 87.8 kg (193 lb 9.6 oz) 04/07/2025 8:17 A M CDT Height 157.5 cm (5' 2) 04/07/2025 8:17 AM CDT Body Mass Index 35.41 04/07/2025 8:17 AM CDT Plan of Treatment Upcoming Encounters Date Type Department Care Team (Late st Contact Info) Description 01/06/2026 8:00 AM SWIFT TENDER Office Visit [facility] - [facility] [address] [facility] [place] [address] Coco Oconnell, SUPERVISOR [employer]SEM[employer]-BARREL DRUM CUTTER [address] [facility] [address] [place] [address] Health Maintenance Due Date Last Done Comments BONE DENSITY TESTING 1955 COLOGUARD (AGES 45-75) - COL ON CA SCREENING 1955 COLON MONITORING 1955 COLONOSCOPY - COLON CA SCREENING 1957 CT COLONOGRAPHY - COLON CA SCREENING 1955 Colorectal Cancer Screening 1955 FIT - COLON CA SCREENING 1955 FLEX SIG - COLON CA SCREENING 1955 MAMMOGRAM 1955 HEPATITIS C SCREENING 04/17/1975 DTAP/TDAP/TD VACCINES (1 - Tdap) 1976 PNEUMOCOCCAL VACCINE 50+ (1 of 2 - PCV) 1976 ZOSTER VACCINE (1 of 2) 2007 HEPATITIS B VACCINE (1 of 3 - Risk 3-dose series) 2017 Respiratory Syncytial Virus (RSV) Vaccine Pt: or over 60 yrs (1 - Risk 60-74 years 1-dose series) 2017 COVID-19 VACCINE ( - 2023-2 5 season) 2024 DEPRESSION SCREENING 11/04/2024 INFLUENZA VACCINE (#1) 2025 SCREENING FOR DIABETES 04/22/2028 04/22/2025 HIB VACCINE Aged Out No longer eligi [...] on patient's age to complete this topic Goals Goal Patient Goal Type Associated Problems Recent Progress Patient-Stated? 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 Procedure Name Priority Date/Time Associated Diagnosis Comments REF LAB-SPECIMEN STATUS REPORT Routine 04/22/2025 8:15 AM CDT ALPHA FETOPROTEIN BLOOD TUMOR MARKER Routine 04/22/2025 8:15 AM CDT PT-INR Routine 04/22/2025 8:15 AM CDT HEPATIC FUNCTION PANEL Routine 04/22/2025 8:15 AM CDT BASIC METABOLIC PANEL (CALCIUM TOTAL) Routine 04/22/2025 8:15 AM CDT CBC W/O DIFFERENTIAL Routine 04/22/2025 8:15 AM CDT from Last 3 Months Results * REF LAB-SPECIMEN STATUS REPORT (04/22/2025 8:15 AM CDT) Specimen Status Report Comment [facility] INSURANCE BILL Comment: Ambig Abbrev BMP8 Default Ambig Abbrev BMP8 Default A hand-written panel/profile was received from your office. In accordance with the [facility] Ambiguous Test Code Policy dated May 2003, we have completed your order by using the closest currently or formerly recognized AMA panel. We have assigned Basic Metabolic Panel (8), Test Code #168934 to this request. If this is not the testing you wished to receive on this specimen, please contact the [employer] Client Inquiry/Technical Services Department to clarify the test order. We appreciate your business. Ambig Abbrev HFP7 Default Ambig Abbrev HFP7 Default A hand-written panel/profile was received from your office. In accordance with the [facility] Ambiguous Test Code Policy dated May 2003, we have completed your order by using the closest currently or formerly recognized AMA panel. We have assigned Hepatic Function Panel (7), Test Code #217597 to this request. If this is not the testing you wished to receive on this specimen, please contact the [facility] Client Inquiry/Technical Services Department to clarify the test order. We appreciate your business. 04/22/2025 8:15 AM CDT 04/22/2025 Narrative [facility] INSURANCE BILL - 04/23/2025 7:09 AM CDT Performed at: [address] [place] [id number] Qc Tech: Jesus Romero PhD, Phone: [phone] Specimen Comment: A courtesy copy of this report has been sent to [phone], Specimen Comment: Gastroenterology [facility] Lyle Ambrosio MD LAB - CHEMISTRY ORDERABLES Fin al Result Performing Organization Address [facility] Co de Phone Number [facility] INSURANCE BILL [address] [place] [address] * ALPHA FETOPROTEIN BLOOD TUMOR MARKER (04/22/2025 8:15 AM CDT) [facility] Alpha-Fetoprotein Tumor Marker 2.8 0.0 - 9.2 ng/mL [facility] INSURANCE BILL Comment: [employer] Electrochemiluminescence Immunoassay (ECLIA) Values obtained with different assay methods or kits cannot be used interchangeably. Results cannot be interpreted as absolute evidence of the presence or absence of malignant disease. This test is not interpretable in females. 04/22/2025 8:15 AM CDT 04/22/2025 Narrative [facility] INSURANCE BILL - 04/23/2025 7:09 AM CDT Performed at: [address] [place] [id number] Qc Tech: Jesus Romero PhD, Phone: [phone] Specimen Comment: A courtesy copy of this report has been sent to [phone], Specimen Comment: [facility] Lyle Ambrosio MD LAB - CHEMISTRY ORDERABLES Fin al Result Performing Organization Address [facility] de Phone Number [facility] INSURANCE BILL [address] [place] [address] * (ABNORMAL) PT-INR (04/22/2025 8:15 AM CDT) [facility] INR 1.2 0.9 - 1.2 [facility] INSURANCE BILL Comment: Reference interval is for non-anticoagulated patients. Suggested INR therapeutic range for Vitamin K antagonist therapy: Standard Dose (moderate intensity therapeutic range): 2.0 - 3.0 Higher intensity therapeutic range 2.5 - 3.5 PT 13.0(H) 9.1 - 12.0 sec [facility] INSURANCE BILL 04/22/2025 8:15 AM CDT 04/22/2025 Narrative [facility] INSURANCE BILL - 04/23/2025 7:09 AM CDT Performed at: [address] [id number] Qc Tech: Jesus Romero PhD, Phone: [phone] Specimen Comment: A courtesy copy of this report has been sent to [phone], Specimen Comment: [facility] us Lyle Ambrosio MD LAB - COAGULATION ORDERABLES F inal Result [facility] INSURANCE BILL [address] [place] [address] * (ABNORMAL) CBC W/O DIFFERENTIAL (04/22/2025 8:15 AM CDT) WBC 3.1(L) 3.4 - 10.8 x10E3/uL [facility] INSURANCE BILL RBC 4.64 3.77 - 5.28 x10E6/uL [facility] INSURANCE BILL Comment:Ovalocytes present. Hemoglobin 13.7 11.1 - 15.9 g/dL [facility] INSURANCE BILL Hematocrit 42.8 34.0 - 46.6 % [facility] INSURANCE BILL MCV 92 79 - 97 fL [facility] INSURANCE BILL MCH 29.5 26.6 - 33.0 pg [facility] INSURANCE BILL MCHC 32.0 31.5 - 35.7 g/dL [facility] INSURANCE BILL RDW 14.4 11.7 - 15.4 % [facility] INSURANCE BILL Platelet Count 101(L) 150 - 450 x10E3/uL [facility] INSURANCE BILL Comment: Performed at: [address] [place] [id number] Qc Tech: Jesus Romero PhD, Phone: [phone] Comment Hematology Note: [facility] INSURANCE BILL Comment:Verified by microsco pic examination. 04/22/2025 8:15 AM CDT 04/22/2025 Narrative [facility] INSURANCE BILL - 04/23/2025 7:09 AM CDT Performed at: [address] [id number] Qc Tech: Jesus Romero PhD, Phone: [phone] Specimen Comment: A courtesy copy of this report has been sent to [phone], Specimen Comment: [facility] us Lyle Ambrosio MD LAB - HEMATOLOGY ORDERABLES Fi nal Result [facility] INSURANCE BILL [address] [place] [address] * BASIC METABOLIC PANEL (CALCIUM TOTAL) (04/22/2025 8:15 AM CDT) Glucose 92 70 - 99 mg/dL [facility] INSURANCE BILL BUN 13 8 - 27 mg/dL [facility] INSURANCE BILL Creatinine 0.79 0.57 - 1.00 mg/dL [facility] INSURANCE BILL eGFR by CKD-EPI 81 >59 mL/min/1.7 3 [facility] INSURANCE BILL BUN/Creatinine Ratio 16 12 - 28 [facility] INSURANCE BILL Sodium 140 134 - 144 mmol/L [facility] INSURANCE BILL Potassium 4.7 3.5 - 5.2 mmol/L [facility] INSURANCE BILL Chloride 104 96 - 106 mmol/L [facility] INSURANCE BILL CO2 25 20 - 29 mmol/L [facility] INSURANCE BILL Calcium 9.6 8.7 - 10.3 mg/dL [facility] INSURANCE BILL 04/22/2025 8:15 AM CDT 04/22/2025 Narrative [facility] INSURANCE BILL - 04/23/2025 7:09 AM CDT Performed at: [address] [id number] Qc Tech: Jesus Romero PhD, Phone: [phone] Specimen Comment: A courtesy copy of this report has been sent to [phone], Specimen Comment: [facility] us Lyle Ambrosio MD LAB - CHEMISTRY ORDERABLES Fin al Result Performing Organization Address [facility] Co de Phone Number [facility] INSURANCE BILL [address] [place] [address] * (ABNORMAL) HEPATIC FUNCTION PANEL (04/22/2025 8:15 AM CDT) Protein Total 6.1 6.0 - 8.5 g/dL [facility] INSURANCE BILL Albumin 3.8(L) 3.9 - 4.9 g/dL [facility] INSURANCE BILL Bilirubin Total 1.3(H) 0.0 - 1.2 mg/dL [facility] INSURANCE BILL Bilirubin Direct 0.40 0.00 - 0.40 mg/dL [facility] INSURANCE BILL Alkaline Phosphatase 109 44 - 121 IU/L [facility] INSURANCE BILL AST 49(H) 0 - 40 IU/L [facility] INSURANCE BILL ALT 28 0 - 32 IU/L [facility] INSURANCE BILL 04/22/2025 8:15 AM CDT 04/22/2025 Narrative [facility] INSURANCE BILL - 04/23/2025 7:09 AM CDT Performed at: [address] [place] [id number] Qc Tech: Jesus Romero PhD, Phone: [phone] Specimen Comment: A courtesy copy of this report has been sent to [phone], Specimen Comment: [facility] Lyle Ambrosio MD LAB - CHEMISTRY ORDERABLES Fin al Result Performing Organization Address [facility] Co de Phone Number [facility] INSURANCE BILL [address] [place] [address] from Last 3 Months Insurance [facility] Care Teams Pourer Off Relationship Specialty Start Date End Date Provider, No Pcp PCP - General 04/05/25
--- OUTSIDE RECORDS SUMMARY | 2025-07-02 08:49 | XMS_ITS | Clinical Summary ---
[facility] Organization [facility] Address [address] [place] [id number] Care Team Providers Care Hooker Operator Name Role Phone Justine Prescott MD Primary Care Provider [phone] Medications No known medications Active Problems No known active problems Social History Tobacco Use Types Packs/Day Years Used Date Smoking Tobacco: Never Smokeless Tobacco: Never Comments Unknown Sex and Gender Information Value Date Recorded Sex Assigned at Not on file Legal Sex Female 9:48 AM ICE RINK ATTENDANT Gender Identity Not on file Sexual Orientation Not on file Last Filed Vital Signs Vital Sign Reading Time Taken Comments Blood Pressure 139/82 11/01/2020 10:22 AM ICE RINK ATTENDANT Pulse 82 11/01/2020 10:22 AM ICE RINK ATTENDANT Temperature 37.5 C (99.5 F) 11/01/2020 10:22 AM ICE RINK ATTENDANT Respiratory Rate 20 11/01/2020 10:22 AM ICE RINK ATTENDANT Oxygen Saturation 98% 11/01/2020 10:22 AM ICE RINK ATTENDANT Inhaled Oxygen Concentration - - Weight - [...] 2007 OSTEOPOROSIS SCREENING 2022 INFLUENZA VACCINE (#1) 2025 RSV VACCINE (60+ or ) (1 - 1-dose 75+ series) 2032 Insurance BLUE ACCESS CHOICE Care Teams Hooker Operator Relationship Specialty Start Date End Date Justine Prescott MD [address] [place] [address] PCP - General 11/01/20
== END 2025-07-02 08:43 | disposition home or self-care (01) ==
PROVIDERS: PCP Family Medicine; Visit Provider Nurse Practitioner Family
DX: I85.00 Esophageal varices without bleeding (principal); K76.6 Portal hypertension; K31.89 Other diseases of stomach and duodenum; D69.6 Thrombocytopenia, unspecified; R74.01 Elevation of levels of liver transaminase levels; R16.1 Splenomegaly, not elsewhere classified; K74.60 Unspecified cirrhosis of liver
CPT/HCPCS: 76705

== ENCOUNTER 2025-07-27 00:45 | Day surgery (SDC) | payer OTHER, SELFPAY ==
[2025-07-21 09:14] VITALS: BMI 34.7
--- OUTSIDE RECORDS SUMMARY | 2025-07-27 00:49 | XMS_ITS | Clinical Summary ---
Author Organization [facility] Address [address] [place] [id number] Care Team Providers Care Stage Setting Painter Apprentice Name Role Phone Justine Prescott MD Primary Care Provider [phone] Medications No known medications Active Problems No known active problems Social History Tobacco Use Types Packs/Day Years Used Date Smoking Tobacco: Never Smokeless Tobacco: Never Comments Unknown Sex and Gender Information Value Date Recorded Sex Assigned at Not on file Legal Sex Female 9:48 AM STOPER Gender Identity Not on file Sexual Orientation Not on file Last Filed Vital Signs Vital Sign Reading Time Taken Comments Blood Pressure 139/82 11/01/2020 10:22 AM STOPER Pulse 82 11/01/2020 10:22 AM STOPER Temperature 37.5 C (99.5 F) 11/01/2020 10:22 AM STOPER Respiratory Rate 20 11/01/2020 10:22 AM STOPER Oxygen Saturation 98% 11/01/2020 10:22 AM STOPER Inhaled Oxygen Concentration - - Weight - [...] 2032 Insurance BLUE ACCESS CHOICE Care Teams Stage Setting Painter Apprentice Relationship Specialty Start Date End Date Justine Prescott MD [address] [place] [address] PCP - General 11/01/20
--- OUTSIDE RECORDS SUMMARY | 2025-07-27 00:49 | XMS_ITS | Clinical Summary ---
Author Organization [facility] Address [address] [facility] [place] [address] Care Team Providers Care Janitorial Account Manager Name Role Phone Provider, No Pcp Primary Care Provider Unavailab le Source Comments [facility],non-owned Affiliates and Associated Physician Practices is amultiple site organization consisting of ambulatory clinics and hospital sitesin [place], [place], [place] and [place]. This disclosure is being madepursuant to the Care Everywhere program and may not contain all information available regarding this patient. 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 Procedure Name Priority Date/Time Associated Diagnosis Comments BASIC METABOLIC PANEL (CALCIUM TOTAL) Routine 04/22/2025 8:15 AM CDT from Last 3 Months or Most Recently Relevant to Health Maintenance Results * BASIC METABOLIC PANEL (CALCIUM TOTAL) (04/22/2025 [...] - 04/23/2025 7:09 AM CDT Performed at: [address] [id number] Roguer: Jesus Romero PhD, Phone: [phone] Specimen Comment: A courtesy copy of this report has been sent to [phone], Specimen Comment: Gastroenterology [facility] us Lyle Ambrosio MD LAB - CHEMISTRY ORDERABLES Fin al Result [facility] INSURANCE BILL [address] [place] [address] from Last 3 Months or Most Recently Relevant to Health Maintenance Insurance [facility] Care Teams Janitorial Account Manager Relationship Specialty Start Date End Date Provider, No Pcp PCP - General 04/05/25
[2025-07-27 07:49] VITALS: BP 134/60; PULSE 72; RESP 19; TEMP 36.6; O2SAT 94
[2025-07-27] MEDS: LACTATED RINGERS 1,000 ML 150 ML IV CONT (08:01)
--- NOTE | 2025-07-27 08:26 | WPDANESEPPF ---
Anes - Initial Pre Proc Eval Procedure: Operation Date: 07/27/25 08:45 Proposed Procedures p Esophagogastroduodenoscopy - Felipe Levin MD Date/Time: 07/27/25 08:26 Surgeon: Felipe Levin MD Pre Op Diagnosis: hx of esophogeal varices/Cirrohosis Patient Data Age: 70 Gender: F Height: 1.57 m Weight: 89.5 kg Last Vital Signs Temp 98 F 07/27/25 07:49 Pulse 72 07/27/25 07:49 Resp 19 07/27/25 07:49 BP 134/60 07/27/25 07:49 Pulse Ox 94 07/27/25 07:49 O2 Del Method Room Air 07/27/25 07:49 Allergies Allergy/AdvReac Type Severity Reaction Status Date / Time No Known Allergies Allergy Verified 07/27/25 07:48 Home Medications ?Medication ?Instructions ?Recorded ?Confirmed ?Type multivitamin (Multiple Vitamins 1 tablet PO DAILY 10/06/19 07/27/25 History tablet) cholecalciferol (vitamin D3) 25 1,000 unit PO DAILY 04/11/20 07/27/25 History mcg (1,000 unit) capsule albuterol sulfate 2.5 mg/3 mL 2.5 mg (3 mL) inhalation Q4-6H PRN 05/25/22 07/21/25 Rx (0.083 %) solution for nebulization shortness of breath or wheezing #180 mL citalopram 20 mg tablet 20 mg PO DAILY 09/23/24 07/27/25 History pantoprazole 40 mg tablet,delayed 40 mg PO DAILY 09/23/24 07/27/25 History release propranolol 10 mg tablet 10 mg PO Q12H #60 tabs 10/09/24 07/27/25 Rx semaglutide 2 mg/dose (8 mg/3 mL) 2 mg (0.75 mL) subcut WEEKLY 90 01/20/25 07/27/25 Rx subcutaneous pen injector days #9 mL simvastatin 20 mg tablet 20 mg PO DAILY #90 tabs 03/24/25 07/27/25 Rx montelukast 10 mg tablet 10 mg PO DAILY #90 tabs 04/05/25 07/27/25 Rx lisinopril 5 mg tablet 5 mg PO DAILY #90 tabs 04/22/25 07/27/25 Rx Laboratory Tests 07/27/25 07:58 POC Capillary Glucose 83 mg/dl (65-105) Patient hx anesthesia problems: none Family hx anesthesia problems: none Results Review: All pre-operative results and documents have been reviewed as part of the pre-operative evaluation. [facility] Past Medical History Medical History Family history of liver cancer Thrombocytopenia Portal hypertensive gastropathy Esophageal varices without bleeding Splenomegaly Abnormal CT scan Encounter for screening colonoscopy Hepatic cirrhosis Type 2 diabetes mellitus without complications Tenosynovitis of thumb Seborrheic dermatitis of scalp Rotator cuff tendonitis Onychomycosis Obstructive sleep apnea Myalgia Mixed hyperlipidemia Major depressive disorder, single episode, unspecified De Quervain's disease (radial styloid tenosynovitis) Transaminitis Thyroid nodule BMI greater than 40 Osteopenia Arthralgia FH: cholecystectomy Vitamin D deficiency Pure hypercholesterolemia, unspecified Nontoxic multinodular goiter Metabolic syndrome Essential hypertension Surgical History Surgical History History of cholecystectomy Hx of bone graft H/O: hysterectomy Family History Family History Mother Family history of migraine headaches Family history of cataracts Hypertension Family history of Alzheimer's disease Family history of diabetes mellitus in first degree relative Family history of malignant neoplasm of breast in first degree relative Family history of hearing loss Father Family history of cataracts Hypertension Family history of arthritis Family history of diabetes mellitus in first degree relative Family history of primary malignant neoplasm of liver Sibling Family history of congestive heart failure Other Diabetes mellitus Family history of coronary artery disease Family history of tremor Social History Social History Smoking status: Never smoker Second hand tobacco smoke exposure: No Alcohol intake: former Alcohol use details: rare Substance use: never Substance use type: does not use Lack of Transportation: No Lack of Food: Never True Current Housing: I Have Housing Concerned About Future Housing: No Difficulty Paying Gas/Electric Bills: No Difficulty Paying for Meds: No Currently Unemployed: No Education: High School Diploma/GED Difficulty w/ Childcare or Family Care: No Living arrangements: alone Occupation/Education: occupation Gender identity (if verbalized by the patient): Female Sexual Orientation (if Verbalized by the Patient): Straight or Heterosexual Spiritual care concerns: No Agree to blood products: Yes Anes - Eval Final PreProcedure Day of Procedure 07/27/25 08:26 Patient weight: obese Lungs: normal air movement Airway: Mallampati scale class II Neurological: alert and oriented Last oral intake: >/= 8 hours ASA classification: III Emergent: no Anesthetic plan: proceed Anesthesia type and monitoring: general GIVS and standard monitoring Results Review: All pre-operative results and documents have been reviewed as part of the pre-operative evaluation. HTN, hyperlipidemia, DM fsbs 83, hx of cirrhosis. Informed Consent: The patient's anesthetic plan and its attendant risks and benefits were discussed with the patient/family/POA. Questions were solicited and answers provided to the satisfaction of the patient/family/POA.
--- NOTE | 2025-07-27 08:47 | PM.HPGS ---
History of Present Illness History of Present Illness Consent: Risks, benefits, and alternatives have been discussed and questions answered. Patient agrees to proceed with procedure. Chief complaint: hx of esophogeal varices/Cirrohosis Narrative: Elyse Damon is a 70 year old female here for another egd, diagnosed with cirrhosis 06/2024 after imaging obtained for elevated LFTs. Liver workup for chronic liver disease negative. Underwent esophageal banding times 4 bands 08/2024 with follow up EGD showing only Grade 1 varices and did not require any more. Currently maintained on Propranolol 10 mg BID Review of Systems Review of Systems: All systems reviewed & are unremarkable except as noted in HPI and below PMFSH Past Medical History Medical History Family history of liver cancer Thrombocytopenia Portal hypertensive gastropathy Esophageal varices without bleeding Splenomegaly Abnormal CT scan Encounter for screening colonoscopy Hepatic cirrhosis Type 2 diabetes mellitus without complications Tenosynovitis of thumb Seborrheic dermatitis of scalp Rotator cuff tendonitis Onychomycosis Obstructive sleep apnea Myalgia Mixed hyperlipidemia Major depressive disorder, single episode, unspecified De Quervain's disease (radial styloid tenosynovitis) Transaminitis Thyroid nodule BMI greater than 40 Osteopenia Arthralgia FH: cholecystectomy Vitamin D deficiency Pure hypercholesterolemia, unspecified Nontoxic multinodular goiter Metabolic syndrome Essential hypertension Surgical History Surgical History History of cholecystectomy Hx of bone graft H/O: hysterectomy Family History Family History Mother Family history of migraine headaches Family history of cataracts Hypertension Family history of Alzheimer's disease Family history of diabetes mellitus in first degree relative Family history of malignant neoplasm of breast in first degree relative Family history of hearing loss Father Family history of cataracts Hypertension Family history of arthritis Family history of diabetes mellitus in first degree relative Family history of primary malignant neoplasm of liver Sibling Family history of congestive heart failure Other Diabetes mellitus Family history of coronary artery disease Family history of tremor Social History Social History Smoking status: Never smoker Second hand tobacco smoke exposure: No Alcohol intake: former Alcohol use details: rare Substance use: never Substance use type: does not use Lack of Transportation: No Lack of Food: Never True Current Housing: I Have Housing Concerned About Future Housing: No Difficulty Paying Gas/Electric Bills: No Difficulty Paying for Meds: No Currently Unemployed: No Education: High School Diploma/GED Difficulty w/ Childcare or Family Care: No Living arrangements: alone Occupation/Education: occupation Gender identity (if verbalized by the patient): Female Sexual Orientation (if Verbalized by the Patient): Straight or Heterosexual Spiritual care concerns: No Agree to blood products: Yes Meds Home Medications and Allergies Home Medications ?Medication ?Instructions ?Recorded ?Confirmed ?Type multivitamin (Multiple Vitamins 1 tablet PO DAILY 10/06/19 07/27/25 History tablet) cholecalciferol (vitamin D3) 25 1,000 unit PO DAILY 04/11/20 07/27/25 History mcg (1,000 unit) capsule albuterol sulfate 2.5 mg/3 mL 2.5 mg (3 mL) inhalation Q4-6H PRN 05/25/22 07/21/25 Rx (0.083 %) solution for nebulization shortness of breath or wheezing #180 mL citalopram 20 mg tablet 20 mg PO DAILY 09/23/24 07/27/25 History pantoprazole 40 mg tablet,delayed 40 mg PO DAILY 09/23/24 07/27/25 History release propranolol 10 mg tablet 10 mg PO Q12H #60 tabs 10/09/24 07/27/25 Rx semaglutide 2 mg/dose (8 mg/3 mL) 2 mg (0.75 mL) subcut WEEKLY 90 01/20/25 07/27/25 Rx subcutaneous pen injector days #9 mL simvastatin 20 mg tablet 20 mg PO DAILY #90 tabs 03/24/25 07/27/25 Rx montelukast 10 mg tablet 10 mg PO DAILY #90 tabs 04/05/25 07/27/25 Rx lisinopril 5 mg tablet 5 mg PO DAILY #90 tabs 04/22/25 07/27/25 Rx Allergies Allergy/AdvReac Type Severity Reaction Status Date / Time No Known Allergies Allergy Verified 07/27/25 07:48 Vital Signs Vital Signs - 24 hr 07/27/25 07:49 Temperature 98 F Pulse Rate 72 Respiratory Rate 19 Blood Pressure 134/60 Pulse Oximetry 94 Oxygen Delivery Room Air Exam Const: General: comfortable and no acute distress HENMT: Face/Nose/Sinus: Normal nares present Eyes: General: appearance normal, both eyes and all related structures Neck: Neck: no JVD Resp: Auscultation: clear to auscultation bilaterally Cardio: Rate: regular rate Rhythm: regular rhythm GI: Inspection: non-distended GI Palp: Yes Soft to palpation Skin: General skin exam: normal color Neuro: Speech: normal speech Extrem: General: normal to inspection Psych: Mental Status: mental status grossly normal Assessment and Plan Assessment and plan (1) Hepatic cirrhosis: Code(s): K74.60 - Unspecified cirrhosis of liver Status: Acute Assessment and Plan: egd (2) Esophageal varices without bleeding: Code(s): I85.00 - Esophageal varices without bleeding Status: Acute
[2025-07-27 08:57] VITALS: BP 124/69; PULSE 71; RESP 16; O2SAT 100
[2025-07-27 09:07] VITALS: BP 137/75; PULSE 70; RESP 17; O2SAT 99
[2025-07-27 09:17] VITALS: BP 146/78; PULSE 68; RESP 16; O2SAT 100
== END 2025-07-27 09:29 | disposition home or self-care (01) ==
PROVIDERS: PCP Family Medicine; Referring Provider Internal Medicine Gastroenterology; Visit Provider Internal Medicine Gastroenterology
PROC: 0DJ08ZZ Inspection of Upper Intestinal Tract, Via Natural or Artificial Opening Endoscopic (ICD-10-PCS; CPT 43235; principal; 2025-07-27 08:45)
DX: I85.00 Esophageal varices without bleeding (principal); K29.70 Gastritis, unspecified, without bleeding; K74.60 Unspecified cirrhosis of liver; E11.9 Type 2 diabetes mellitus without complications; E78.2 Mixed hyperlipidemia; I10 Essential (primary) hypertension; G47.33 Obstructive sleep apnea (adult) (pediatric); E55.9 Vitamin D deficiency, unspecified; D69.6 Thrombocytopenia, unspecified; M65.4 Radial styloid tenosynovitis [de Quervain]; E88.810 Metabolic syndrome; K76.6 Portal hypertension; K31.89 Other diseases of stomach and duodenum; L21.9 Seborrheic dermatitis, unspecified; F32.9 Major depressive disorder, single episode, unspecified; M85.88 Other specified disorders of bone density and structure, other site; E66.9 Obesity, unspecified; Z68.36 Body mass index [BMI] 36.0-36.9, adult; Z79.51 Long term (current) use of inhaled steroids; Z79.85 Long-term (current) use of injectable non-insulin antidiabetic drugs; Z98.890 Other specified postprocedural states; Z90.49 Acquired absence of other specified parts of digestive tract; Z87.19 Personal history of other diseases of the digestive system; Z80.3 Family history of malignant neoplasm of breast; Z80.0 Family history of malignant neoplasm of digestive organs; Z82.49 Family history of ischemic heart disease and other diseases of the circulatory system
CPT/HCPCS: 43235; 82948; J2003; J2704; J7120